=== PATIENT | female | born 1985 | race African-American/Black ===

== ENCOUNTER 2018-05-05 11:20 | Emergency (ER) | payer OTHER, SELFPAY ==
[2018-05-05 11:21] VITALS: BP 119/73; PULSE 92; RESP 18; TEMP 36.6; O2SAT 99; BMI 23.5
--- NOTE | 2018-05-05 11:30 | ED.VISSUMM ---
- ER Visit Summary Date of Service: 05/05/18 Chief Complaint: Itching History of Present Illness: The patient is a 32 F who has been itching for 4 days. She ate a granola bar with peanuts and now she is itching. She has never had any issues with peanuts in the past. No history of anaphylaxis. Denies shortness of breath, tongue swelling, rashes. She took nothing for this at home. Physical Examination: Vital signs reviewed. HEENT exam unremarkable. Heart is regular rate and rhythm without murmurs. Lungs are clear to auscultation. Abdomen is soft and nontender. Extremities reveal no edema. Skin exam normal. Neurologic exam normal. Test Results: [] Emergency Department Course and Treatment: Patient has no signs of any allergy reaction. I will give her Vistaril to help with itching. She can supplement with Benadryl and she will follow-up with her PCP Treatment Plan: [] Disposition: discharge Impression: Pruritus This note was generated with [employer] dictation software. It may contain incorrect words, spelling, and punctuation that were not noted in review of the chart prior to signing ED Disposition - Plan for ED Patient: Chief Complaint: Allergic Reaction Referrals: Care Physician,No Primary [Primary Care Provider] -
--- NOTE | 2018-05-05 11:32 | ED.DEP ---
ED Disposition - Plan for ED Patient: Disposition: Home or Assisted Living Chief Complaint: Allergic Reaction Instructions: ED Allergic Reaction Local Other Prescriptions: hydrOXYzine pamoate capsule [Vistaril] 25 mg PO TID PRN PRN #30 cap PRN Reason: Itching Referrals: Care Physician,No Primary [Primary Care Provider] -
== END 2018-05-05 11:46 | disposition home or self-care (01) ==
LOC: ED 11:42
PROVIDERS: Emergency Provider Emergency Medicine
DX: L29.9 Pruritus, unspecified (principal)
CPT/HCPCS: 99282

== ENCOUNTER 2018-09-26 21:10 | Emergency (ER) | payer OTHER, SELFPAY ==
[2018-09-26 21:11] VITALS: BP 122/73; PULSE 81; RESP 16; TEMP 36.8; O2SAT 98; BMI 22.0
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
[2018-09-26 22:23] VITALS: BP 120/70; PULSE 75; RESP 16; O2SAT 98
== END 2018-09-26 22:25 | disposition home or self-care (01) ==
PROVIDERS: Emergency Provider Emergency Medicine
DX: S00.03XA Contusion of scalp, initial encounter (principal); R40.2410 Glasgow coma scale score 13-15, unspecified time; V89.2XXA Person injured in unspecified motor-vehicle accident, traffic, initial encounter; Y93.9 Activity, unspecified; Y92.9 Unspecified place or not applicable
CPT/HCPCS: 99282

== ENCOUNTER 2018-10-23 20:52 | Emergency (ER) | payer OTHER, SELFPAY ==
[2018-10-23 20:53] VITALS: BP 123/71; PULSE 90; RESP 16; TEMP 36.2; O2SAT 100; BMI 26.4
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
[2018-10-23 21:37] VITALS: PULSE 68; RESP 18; O2SAT 96
== END 2018-10-23 21:37 | disposition home or self-care (01) ==
LOC: ED 21:21
PROVIDERS: Emergency Provider Emergency Medicine
DX: F07.81 Postconcussional syndrome (principal); V89.2XXA Person injured in unspecified motor-vehicle accident, traffic, initial encounter; Y93.9 Activity, unspecified; Y92.9 Unspecified place or not applicable
CPT/HCPCS: 99282

== ENCOUNTER 2018-12-15 10:56 | Emergency (ER) | payer OTHER, SELFPAY ==
[2018-12-15 10:56] VITALS: BP 118/66; PULSE 88; RESP 18; TEMP 36.8; O2SAT 100; BMI 24.9
--- NOTE | 2018-12-15 10:59 | ED.RN ---
PT NEVER FILLED MECLAZINE SCRIPT D/T INSURANCE NOT COVERING
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
--- NOTE | 2018-12-15 11:19 | ED.DEP ---
ED Disposition - Plan for ED Patient: Disposition: Home or Assisted Living Chief Complaint: Dizziness Instructions: ED Concussion Prescriptions: Ondansetron [Zofran Odt] 4 mg PO Q8H PRN PRN #20 tab PRN Reason: Nausea Referrals: Care Physician,No Primary [Primary Care Provider] -
[2018-12-15] MEDS: Ondansetron ODT 4 MG Tablet 8 MG PO (12:13)
== END 2018-12-15 12:31 | disposition home or self-care (01) ==
LOC: ED 12:14
PROVIDERS: Emergency Provider Emergency Medicine; Family Provider Nurse Practitioner Primary Care; PCP Nurse Practitioner Primary Care
DX: F07.81 Postconcussional syndrome (principal)
CPT/HCPCS: 99283

== ENCOUNTER 2020-02-04 22:59 | Emergency (ER) | payer OTHER, SELFPAY ==
[2020-02-04 22:59] VITALS: BP 138/74; PULSE 117; RESP 18; TEMP 38.2; O2SAT 100
[2020-02-04 23:01] VITALS: BP 138/74; PULSE 117; RESP 18; TEMP 38.2; O2SAT 100; BMI 23.0
[2020-02-04 23:08] VITALS: BP 138/74; PULSE 117; RESP 18; TEMP 38.2; O2SAT 100
[2020-02-04 23:17] VITALS: BP 138/74; PULSE 117; RESP 18; TEMP 38.2; O2SAT 100
--- NOTE | 2020-02-04 23:21 | ED.DCSUM_ITS ---
History of Present Illness Chief Complaint: Sore Throat Informant: Patient Narrative: Presents with sore throat since yesterday. She has a low-grade temperature per patient. No home treatment. Current severity is mild. Denies any URI symptoms. No lymph node soreness. No headache. No myalgias or weakness. Past Medical History - Allergies and Home Meds Allergies/Adverse Reactions: Allergies No Known Allergies Allergy (Verified 12/15/18 10:59) Primary Care Physician: Waleska Fontenot NP-C [NON-STAFF] - Prior records reviewed: Yes Past Medical History: - - Reviewed Surgical History: - - Reviewed Smoking Status: Never smoker Alcohol: None Drugs: None Review of Systems General: Reports: Fever. Denies: Chills, Sweats Eyes: Denies: Visual changes - bilaterally, Diplopia ENT: Reports: Sore throat. Denies: Rhinorrhea Cardiovascular: Denies: Chest pain, Palpitations Respiratory: Denies: Dyspnea, Cough, Dyspnea on exertion Gastrointestinal: Denies: Abdominal pain, Nausea, Vomiting, Diarrhea, Melena, Hematochezia Genitourinary: Denies: Dysuria, Hematuria, Frequency Musculoskeletal: Denies: Back pain, Extremity Pain Skin: Denies: Rash, Wounds Neurological: Denies: Headache, Weakness, Numbness Physical Exam Vital Signs/Narrative: Vital Signs Temp Pulse Resp BP Pulse Ox 02/04/20 23:17 100.7 F H 117 H 18 138/74 H 100 02/04/20 23:08 100.7 F H 117 H 18 138/74 H 100 02/04/20 23:01 100.7 F H 117 H 18 138/74 H 100 02/04/20 22:59 100.7 F H 117 H 18 138/74 H 100 General: Well nourished, Well developed, No Acute Distress Head: Normocephalic, Atraumatic Eyes: Perrl, EOMI ENT: Moist mucous membranes, No rhinorrhea, - - 2+ tonsils with exudate mild erythema bilateral and rest of oral exam normal Neck: Supple, Nontender Cardiovascular: Regular rate, Regular rhythm, No murmurs Respiratory: No distress, CTA bilaterally, Chest nontender Abdomen: Soft, Nontender, Nondistended, Normal bowel sounds Back: Nontender, Normal Inspection Extremities: Nontender, No edema Skin: Normal color, No rash Neurological: Alert, Oriented x3, Cranial nerves II-XII grossly intact, Normal Strength, Normal Sensation Psychological: Normal affect, Normal Mood Diagnostic/Tx/Re-eval - Medical Decision Making Given Tylenol. Rapid strep obtained. Rapid strep was negative. Culture sent. At this time I feel the patient likely has a viral related sore throat with low- grade temperature. I have a low suspicion for coronavirus. She has no cough or URI symptoms headache. Nonetheless she will monitor her symptoms at home. Given a handout sheet to read about coronavirus. Is likely just a sore throat from a virus however. She will use symptomatic management follow-up as an outpatient and return if she worsens ED Disposition - Plan for ED Patient: Disposition: Home or Assisted Living Diagnosis: Tonsillitis Instructions: PHARYNGITIS, Viral Referrals: PodlogarWaleska NP-C [NON-STAFF] -
[2020-02-04] MEDS: Acetaminophen 500 MG Tablet 1000 MG PO (23:35)
[2020-02-05 01:00] VITALS: PULSE 89; RESP 16; TEMP 37.2; O2SAT 100
== END 2020-02-05 01:02 | disposition home or self-care (01) ==
PROVIDERS: Emergency Provider Emergency Medicine
DX: J03.90 Acute tonsillitis, unspecified (principal)
CPT/HCPCS: 87880; 99283

== ENCOUNTER 2021-05-19 12:52 | Emergency (ER) | payer SELFPAY ==
[2021-05-19 12:54] VITALS: BP 104/71; PULSE 96; RESP 16; TEMP 36.2; O2SAT 99; BMI 19.5
--- NOTE | 2021-05-19 13:19 | EX.ED.DYSGE1 ---
HPI History of Present Illness Chief Complaint: Headache Detail of Chief Complaint: Headache and fatigue and not feeling well Informant: patient Narrative Narrative: Patient presents to the emergency department stating that she has had some head pressure off and on for the last week. Patient states that her sister was recently admitted to a psychiatric hospital and she has been under a lot of stress lately. Patient states she has history of postconcussive type syndrome from a concussion in 2018 and intermittently will have problems with head pressure and nausea and fatigue. Patient denies recent illness. She denies fever. She denies recent falls or head injuries. She complains of head pressure and some mild nausea. She rates her headache currently 3-5 out of 10. Patient also has history of anxiety. She does not think she is because she has a history of amenorrhea. Prior similar symptoms: Yes [facility] Medical History (Updated 05/19/21 @ 16:[address] Guadalupe Oneal, DO) Post concussion syndrome Home Medications NK 05/19/21 [History Last Taken Unknown] lorazepam [Ativan] 1 mg PO TID PRN #10 tab 05/19/21 [Rx Last Taken Unknown] Allergy/AdvReac Type Severity Reaction Status Date / Time peanut Allergy Hives Verified 05/19/21 12:53 Surgical History (Updated 05/19/21 @ 13:40 by Jhonathan Gerber) History of appendectomy Social History Smoking Status: Never smoker ROS ROS ED Constitutional Constitutional ED: Reports systems reviewed and no addt'l complaints, except as documented and other Details: Fatigue ; Denies body ache(s), change in weight or chills Eyes Eyes: Denies acute decrease in peripheral vision, change in vision, double vision or loss of vision ENT ENT ED: Reports none; Denies ear pain, lip swelling, loss taste/smell, neck pain, otalgia or sore throat Cardiovascular Cardiovascular: Reports none; Denies abdominal pain, chest pain with activity, leg edema, lightheadedness, palpitations, rapid heart rate or syncope Respiratory/Chest Respiratory/Chest: Reports none; Denies change in mental status, dry cough, dyspnea, hemoptysis, shortness of breath at rest or shortness of breath with exertion Gastrointestinal Gastrointestinal: Reports none and nausea; Denies abdominal pain, change in stool character, diarrhea, hematemesis, hematochezia, melena, rectal bleeding or vomiting Genitourinary Genitourinary ED: Reports none; Denies abdominal discomfort, anuria, dysuria, genital pain or polyuria Musculoskeletal Musculoskeletal: Reports none; Denies arthralgias, back pain, difficulty walking, extremity pain, muscle weakness or myalgias Integumentary Reports none; Denies abscess or rash Neurologic Neurologic: Reports none and headache(s); Denies abnormal gait, confusion, focal weakness, frequent falls, loss of vision, numbness, paresthesias, radicular pain, vertigo or weakness Psychiatric Psychiatric: Reports systems reviewed and no addt'l complaints, except as documented and none; Denies behavioral changes, confusion, difficulty concentrating, hallucinations, suicidal ideation, tactile hallucinations or visual hallucinations Endocrine Endocrinology: Denies none, cold intolerance, excessive sweating, fatigue or heat intolerance Hematologic/Lymphatic Hematologic/Lymphatic: Reports none; Denies anemia, easy bleeding or easy bruising Allergic/Immunologic Allergic/Immunologic ED: Denies as per HPI, none, lip swelling, mouth swelling, throat swelling, tongue swelling or hives EXAM Physical Exam Const Vital Signs: 05/19/21 12:54 Temperature 97.2 F L Temperature Source Temporal Pulse Rate 96 Respiratory Rate 16 Blood Pressure 104/71 Blood Pressure Mean 82 Pulse Ox 99 Oxygen Delivery Method Room Air Positive well nourished and well developed General Appearance ED: well developed and NAD HEENT Reports TM's clear and moist mucous membranes normocephalic and atraumatic; Negative for trauma or tenderness Tympanic Membrane ED: Yes TM's clear Eyes PERRL and EOMs intact bilaterally General Eye ED: Negative for pale conjunctiva or scleral icterus Neck no lymphadenopathy, supple and no JVD General: Negative for tenderness Chest Wall inspection of chest normal and palpation of chest normal Chest: Negative for tenderness Resp normal respiratory effort and clear to auscultation bilaterally Effort and Inspection: Negative for respiratory distress or pain with movement Auscultation: Negative for rhonchi, wheezes or diminished lung sounds Cardio regular rate, regular rhythm, S1 normal heart sound, S2 normal heart sound and no murmurs Peripheral Pulses: pulses 2+ throughout GI normal to inspection, nondistended, normoactive bowel sounds, soft to palpation, non-tender, non-distended and no masses Back/Spine no CVA tenderness and no thoracic nor lumbar tenderness Extremity normal to inspection General Extremety ED: Negative for edema General Extremity: Negative for edema Neuro oriented x3, CN's II-XII intact bilaterally, no sensory deficits noted and gait normal Sensorium / Orientation: awake, alert, oriented to person, oriented to place and oriented to time Motor Exam: strength 5/5 throughout and strength abnormal Psych mental status grossly normal Skin no rashes or lesions noted and no wounds MDM MDM MDM Narrative Medical decision making narrative: I suspect patient's symptoms likely stress related and anxiety related. She denies anything for her headache here in the department. She does have history of anxiety but tries to manage with behavioral therapy and has not taken medication for it. She would not be opposed to some Ativan as needed for stress and anxiety in the short-term given her recent increase stress related to her sister. Lab Data Attestation: I reviewed the patient's lab results. Labs: Laboratory Results - last 24 hr 05/19/21 05/19/21 05/19/21 13:41 13:41 13:41 WBC 3.3 L RBC 3.62 L Hgb 11.7 L Hct 36.2 L MCV 100.0 H MCH 32.3 H MCHC 32.3 RDW Std Deviation 46.0 H RDW Coeff of Doug 12.3 Plt Count 255 MPV 10.1 Immature Gran % (Auto) 0.000 Neut % (Auto) 49.3 Lymph % (Auto) 38.8 Stewart % (Auto) 9.5 Eos % (Auto) 1.8 Baso % (Auto) 0.6 Absolute Neuts (auto) 1.6 L Absolute Lymphs (auto) 1.26 Nucleated RBC % 0 Sodium 141 Potassium 4.0 Chloride 109 H Carbon Dioxide 25.0 Anion Gap 7 BUN 4 L Creatinine 0.91 Estim Creat Clear Calc 80.03 Est GFR (MDRD) Af Amer 91 Est GFR (MDRD) Non-Af 75 BUN/Creatinine Ratio 4.4 L Glucose 103 Calcium 8.7 Serum , Qual NEGATIVE Urine Color Urine Clarity Urine pH Ur Specific Glidden Urine Protein Urine Glucose (UA) Urine Ketones Urine Occult Blood Urine Nitrite Urine Bilirubin Urine Urobilinogen Ur Leukocyte Esterase 05/19/21 15:20 WBC RBC Hgb Hct MCV MCH MCHC RDW Std Deviation RDW Coeff of Doug Plt Count MPV Immature Gran % (Auto) Neut % (Auto) Lymph % (Auto) Stewart % (Auto) Eos % (Auto) Baso % (Auto) Absolute Neuts (auto) Absolute Lymphs (auto) Nucleated RBC % Sodium Potassium Chloride Carbon Dioxide Anion Gap BUN Creatinine Estim Creat Clear Calc Est GFR (MDRD) Af Amer Est GFR (MDRD) Non-Af BUN/Creatinine Ratio Glucose Calcium Serum , Qual Urine Color Yellow Urine Clarity Clear Urine pH 6.5 Ur Specific Glidden 1.005 Urine Protein Negative Urine Glucose (UA) Normal Urine Ketones Negative Urine Occult Blood Negative Urine Nitrite Negative Urine Bilirubin Negative Urine Urobilinogen Normal Ur Leukocyte Esterase Negative Discharge Plan Triage Chief Complaint: Headache ED Provider: Guadalupe Oneal Dx/Rx/DC Orders Clinical Impression: Anxiety, Fatigue, Headache Prescriptions: New lorazepam [Ativan] 1 mg tablet 1 mg PO TID PRN (Reason: anxiety) Qty: 10 RF: 0 No Action NK RF: 0 Primary Care Provider: Care Physician,No Primary Referrals: Betty Norman MD [STAFF PHYSICIAN] - 3-5 Days Care Physician,No Primary [Primary Care Provider] - Disposition Disposition: Home, Self Care
[2021-05-19] MEDS: 0.9% Normal Saline 1,000 ML 1000 ML IV (13:41)
[2021-05-19 13:51] LABS: Absolute Lymphocyte Count 1.26 X10^3/uL (0.83-4.51); Absolute Neutrophil Count 1.6 X10^3/uL (2.0-7.7); Basophil# 0.02 X10^3/uL; Basophil% 0.6 % (0-1); Eosinophil# 0.06 X10^3/uL; Eosinophils% 1.8 % (0-5); Hematocrit 36.2 % (37-47); Hemoglobin 11.7 g/dL (12.0-15.0); Lymphocyte # 1.26 X10^3/ul (0.83-4.51); Lymphocyte % 38.8 % (19-41); Mean Corp Hgb Conc 32.3 g/dL (32-36); Mean Corpuscular Hgb 32.3 pg (27.0-32.0); Mean Platelet Vol. 10.1 fl (6.2-12.0); Monocyte# 0.31 X10^3/uL; Monocyte% 9.5 % (0-10); NRBC Flagged by Analyzer 0 % (0-5); Neutrophil % 49.3 % (47-70); Platelet Count 255 K/mm3 (150-450); RBC Distribution Width CV 12.3 % (11.6-14.6); Red Blood Count 3.62 M/mm3 (4.2-5.4); White Blood Count 3.3 K/mm3 (4.4-11.0)
[2021-05-19 14:02] LABS: Anion Gap 7 (5-15); BUN 4 mg/dL (7-18); BUN/Creat Ratio 4.4 RATIO (10-20); Calcium,Total 8.7 mg/dL (8.5-10.1); Chloride 109 mmol/L (98-107); Creatinine, Serum 0.91 mg/dL (0.55-1.02); EST Glomerular Filtration Rate 75 mL/min (>60); Est Glom Filt Rate - Afr Amer 91 mL/min (>60); Estimated Creatinine Clearance 80.03 ml/min; Glucose 103 mg/dL (74-106); Sodium Level 141 mmol/L (136-145)
[2021-05-19 14:12] LABS: Internal QC Validated? YES +Cl - CLEAR BKGD; Pregnancy, Serum, hCG Quali. NEGATIVE Negative
[2021-05-19 15:26] LABS: Bacteria 0 SEEN /hpf (None Seen); Mucous, Urine 0 SEEN /hpf (<or=2+); Red Blood Cells-Urine 0 SEEN /hpf (0-5); Squamous Epithelial Cells - UA 0 SEEN /hpf (5-10); White Blood Cells 0 SEEN /hpf (0-5)
[2021-05-19 15:43] LABS: Color, Urine Yellow (Yellow); Glucose, Dipstick Normal (Normal); Ketone-Dipstick Negative (Negative); Leukocyte Esterase-Dipstick Negative /ul (Negative); Nitrite-Dipstick Negative (Negative); Occult Blood-Urine Negative /ul (Negative); Protein-Dipstick Negative (Negative); Specific Gravity, Urine 1.005 (1.002-1.030); Urine Bilirubin Dipstick Negative (Negative); Urine Clarity Clear (Clear); Urine Urobilinogen Normal (Normal); Urine pH 6.5 (5.0 - 8.0)
[2021-05-19 16:15] VITALS: BP 101/80; PULSE 76; RESP 16; O2SAT 98
== END 2021-05-19 16:16 | disposition home or self-care (01) ==
PROVIDERS: Emergency Provider Emergency Medicine
DX: R51.9 Headache, unspecified (principal); F41.9 Anxiety disorder, unspecified; R53.83 Other fatigue; F07.81 Postconcussional syndrome
CPT/HCPCS: 80048; 81001; 84703; 85025; 96360; 96361; 99283; J7030; A4216

== ENCOUNTER 2022-12-17 04:51 | Emergency (ER) | payer MEDICAID, SELFPAY ==
[2022-12-17 04:53] VITALS: BP 115/83; PULSE 99; RESP 18; TEMP 35.7; O2SAT 100; BMI 24.3
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
== END 2022-12-17 05:31 | disposition home or self-care (01) ==
LOC: ED 05:11
PROVIDERS: Emergency Provider Emergency Medicine; PCP Internal Medicine; Visit Provider Emergency Medicine
DX: R53.1 Weakness (principal); R11.0 Nausea; Z91.81 History of falling
CPT/HCPCS: 99282

== ENCOUNTER 2024-01-30 08:00 | Outpatient (RCR) | payer MEDICAID, SELFPAY ==
--- NOTE | 2024-01-30 09:05 | BH.SGPN.GN ---
Behaviors/Verbalizations/Mental Status: [] Eye contact good. Motor activity appropriate. Speech within normal limits. Affect congruent, mood anxious and content. Thoughts linear, logical, no signs of hallucinations or delusions. Reviewed client?s symptom tracker, denies SI, plan, or intent as of 01/30/2024. Client Response/Progress/Benefit: [] Client first week in tx. She was receptive of session, attentive and willing to process with group. Identified mental health ?wins? as challenging herself to ask for financial assistance from her sister to purchase self-care items. Noted this was outside of her comfort zone but she felt proud and more confident afterwards. Additional win noted as following through with beginning the IOP tx program. Reports current stressor as ongoing difficulties in managing her anxiety and racing thoughts. Shared trying to find the benefits of anxiety and focus on those. Client appeared to benefit from group support and encouragement. Recommended continued IOP tx to continue to reduce anxiety, promote consistent skill application, and prevent decompensation. Narrative Note: []
--- NOTE | 2024-01-30 10:10 | BH.SGPN.GN ---
Behaviors/Verbalizations/Mental Status: [] Eye contact is good. Motor activity is appropriate. Appearance is neat. Speech is Appropriate. Mood is anxious. Affect is congruent. Thoughts are linear and logical. No evidence of psychosis. Client Response/Progress/Benefit: [] Pt was an active participant in group discussions. Attentive during psychoeducation on the 4 communication styles (Passive, Passive-Aggressive, Aggressive, and Assertive) and the obstacles to effective communication. Contributed during interactive discussion on the benefits of communicating effectively which included; having one's needs met, helping others get their needs met, building connection with others, decreases stress and uncertainty, improved relationships, increased trust, and increased understanding of others. Worked well in small group in which pt and peers identified the benefits and disadvantages to the different communication styles. Benefited from increased understanding of communication styles and how these can impact effective communication. Will continue in IOP to decrease anxious avoidance, increase healthy coping, and prevent decompensation.
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
--- NOTE | 2024-01-31 09:05 | BH.SGPN.GN ---
Behaviors/Verbalizations/Mental Status: [Patient was alert and oriented, appropriately dressed and groomed. Eye contact was good, motor activity normal, speech within normal limits. Affect congruent, mood anxious. Thoughts linear, logical, no signs of hallucinations or delusions. Reviewed Patients symptom tracker and the patient reports depressed mood, anxiety/panic attacks, agitation/irritability/anger, self-harm urges, and thoughts/risk of suicide within normal limits.] Client Response/Progress/Benefit: [Patient was engaged and open to the discussion. Patient reported her mood to be ?Anxious?.?Patients first win is that she had a panic attack yesterday but was able to cope with it well. She stated she spoke out loud to herself about the panic attack and reminded herself that she was safe and that it would pass. She stated she eventually left the room and she felt it slowly go away. The group talked about different grounding techniques that help when you feel high adrenaline whether that be from panic or anger. Patients second win is that despite the panic attack she was able to come to group today when in the past her panic attacks normally hospitalized her. Patients stressor is finances. Patient was interactive and respectful with other group members about their mental wins and stressors. Patient benefited from the discussion by listening to feedback and giving input on her peer?s stressors and mental health wins. Patient will continue with IOP treatment to help develop healthy skills, promote mood stability, and improve distress tolerance. ?] Narrative Note: []
--- NOTE | 2024-01-31 11:10 | BH.SGPN.GN ---
Behaviors/Verbalizations/Mental Status: [] Client alert and oriented, casually dressed and groomed. Eye contact good. Motor activity appropriate. Speech within normal limits. Affect congruent, mood euthymic. Thoughts linear, logical, no signs of hallucinations or delusions. Client Response/Progress/Benefit: [] Client was an active participant throughout AEB contributing to discussion, providing personal examples, and taking notes. Client processed emotions felt in the activity and how they coped in the moment. Client provided input during discussion on the types of support our supports can provide. Client able to identify current support system and barriers that get in the way of using supports by drawing out their own support net. Client reported after identifying what type of supports they receive; they gained awareness that they could benefit from more emotional supports. Client identified steps to achieve this by joining an online community and reaching out to someone. Client shared increasing emotional supports will help them feel safer. Client seemed to benefit from identifying the type of support client needs to work on improving. Client recommended to continue IOP tx to prevent decompensation and increase emotional regulation skills. Narrative Note: []
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
[2024-01-31 11:32] VITALS: BP 112/74; PULSE 74
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
--- NOTE | 2024-01-31 12:41 | BH.DR.ITP ---
Initial Treatment Plan Patient Information Visit Information: ADMISSION DATE: EXPECTED LOS: 4-6 weeks Problems/Symptoms Problem #1:: Depression Symptom:: Sadness, low energy, decreased concentration, isolation, low motivation, irritable Problem #2:: Anxiety Symptom:: Worry, rumination, panic attacks, flashbacks, nightmares, hypervigilance
--- NOTE | 2024-02-02 09:03 | BH.SGPN.GN ---
Behaviors/Verbalizations/Mental Status: Patient was alert and oriented, appropriately dressed and groomed. Eye contact was good, motor activity normal, speech within normal limits. Affect congruent, mood euthymic. Thoughts linear, logical, no signs of hallucinations or delusions. Reviewed Patients symptom tracker and denies suicidal ideation, plan, or intention. Client Response/Progress/Benefit: Patient was engaged and open to the discussion. Pt reported mental health win as started new medication despite having anxious/fearful thoughts about potential side effects of new medication. Pt stated additional win was being able to leave her bedroom and spend time downstairs with family for first time in 2 months. Pt reported she is happy she pushed through anxious thoughts and was able to take her medication because she does think it is helpful. 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 Patient benefited from the discussion by listening to feedback and giving input on her peer?s stressors and mental health wins. Patient will continue with IOP treatment to continue healthy coping skills, challenge negative/distorted thoughts, and prevent decompensation.
--- NOTE | 2024-02-02 10:05 | BH.SGPN.GN ---
Behaviors/Verbalizations/Mental Status: [] Eye contact is good. Motor activity is appropriate. Appearance is casual. Speech is Appropriate. Mood is anxious. Affect is congruent. Thoughts are linear and logical. No evidence of psychosis. Client Response/Progress/Benefit: [] Pt was an active participant in activity and taking notes during group discussion. Attentive during psychoeducation and interactive discussion on coping skills, why people use unhealthy coping skills, how to replace unhealthy coping skills, and internal vs external coping skills. Group came up with list of negative coping skills including not asking for help, avoidance, isolating, sleeping, shopping, substance use, and several others. Group discussed the effects of how negative coping skills can impact mental health in a negative way. Participated during experiential activity and was able to related the activity to group topic regarding the benefits of developing strong internal and external support system. Benefited from increased understanding of unhealthy coping skills and the need for developing healthy internal and external coping skills. Will continue in IOP to prevent decompensation, stabilize anxiety, increase healthy coping, decrease isolation, and improve functioning. Narrative Note: []
--- NOTE | 2024-02-02 11:18 | BH.SGPN.GN ---
Behaviors/Verbalizations/Mental Status: []Pt alert and oriented, casually dressed and groomed. Eye contact good. Motor activity appropriate. Speech within normal limits. Affect congruent, mood anxious and dysthymic. Thoughts linear, logical, no signs of hallucinations or delusions. Client Response/Progress/Benefit: []Pt responded well to session, taking notes and contributing when prompted. Group discussed the different categories of coping skills which included distraction, emotional release, grounding, self-love, and thought challenging.? Pt participated in creating a coping skills ?menu? from the five categories of coping skills. Pt's coping skill menu included: cold shower, stretching, 5 senses tool, gratitude reflection, and look at evidence for/against. Appeared to benefit from increasing repertoire of healthy coping skills. Will continue IOP tx to increase repertoire and use of healthy coping skills, promote mood stability, and prevent decompensation. Narrative Note: []
--- NOTE | 2024-02-02 13:24 | BH.MDN ---
Multi-Disciplinary Note Note 60-min Individual: Time Started:: 12:05 Date: 02/02/24 Purpose of session/treatment goals addressed:: Purpose of session was to solidify treatment goals and build rapport. Eye Contact:: Good Motor Activity:: Appropriate Appearance:: Neat Speech:: Appropriate Mood:: Anxious Affect:: Congruent Thoughts:: Linear, Logical and No evidence of hallucinations/delusions noted Staff Interventions:: psychoeducation on: (fear ladder), CBT techniques, rapport building, strengths perspective, treatment planning, goal setting and taught coping skills Client Response:: Client shared she is seeking treatment because her anxiety has worsened significantly since moving back home late last year. Client stated she wasn't leaving her house and isolated in her bedroom for most of the time. Client stated couldn't get energy to even make food for herself and started having suicidal thoughts which is what prompted her to get treatment. Client shared she is complicated family environment with all of her film a verse that she lives with have mental illness. Client stated her mom has schizophrenia but is currently being treated her brother has OCD and is not being treated in her sister has depression. Client reported growing up she often was the person that took care of everybody else and needed to be the strong one. Client stated she recognize that she can no longer be that person that constantly takes care of others and doesn't take care of herself. Client reported she wants to feel like she can live again. 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 Client said in addition to mental health she did have a serious concussion with post concussion symptoms for two years. Client reported she doesn't have post concussion symptoms anymore but is constantly worried if she is too stressed or puts herself in a situation that will trigger her post concussion symptoms again. Client stated while she's in IOP she'd like to learn healthy coping skills to manage her anxiety and depression, wants to learn how to express herself more effectively, improve boundaries, and feel like herself again. Client stated at baseline she's able to run errands with no problem, be more social, go to synagogue, enjoy conversations without having to rehearse them, and get dressed confidently. Client responded well to psychoeducation about fear ladder. Discuss importance about self-care and client admitted she's been lacking in this area. Client agreed go for the weekend is to take time for self-care and rest. Risks/Concerns:: Denies suicidal ideation, plan, or intention to date. future oriented. Progress Toward Goals/Plan:: Progress noted with client reporting mood improvement since starting IOP this week. Client stated being around supportive environment has been very helpful. client does report significant anxious thoughts, depressed symptoms, and limited support. Client is to continue IOP to increase healthy coping, improve daily functioning, and prevent decompensation. Time Stopped:: 13:00
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
--- NOTE | 2024-02-06 09:00 | BH.SGPN.GN ---
Behaviors/Verbalizations/Mental Status: [] Eye contact is good. Motor activity is appropriate. Appearance is casual. Speech is Appropriate. Mood is anxious. Affect is congruent. Thoughts are linear and logical. No evidence of psychosis. Reviewed daily check in sheet and no reports of suicidal ideations or intent. Client Response/Progress/Benefit: [] Pt participated at times during the group discussion. Attentive. Daily symptom tracker notes 2/5 for anxiety and 1/5 for depression and irritability. Notes mood and functioning are better. Able to identify mental health wins and healthy habits. Stressful morning. Insight that she was having cognitive distortions such as catastrophizing and how this impacted her thoughts, feelings, and behaviors. Through insight was able ti implement skills. Challenged herself to seek support rather than isolate this weekend which was beneficial. Emotion for today is relaxed. Progress noted per pt report. Benefited from group support, encouragement, and feedback. Will continue in IOP to prevent decompensation, decrease anxiety, and improve functioning. Narrative Note: []
--- NOTE | 2024-02-06 10:15 | BH.SGPN.GN ---
Behaviors/Verbalizations/Mental Status: []Pt alert and oriented, causally dressed and groomed. Eye contact good Motor activity appropriate. Speech within normal limits. Affect congruent, mood anxious. Thoughts linear, logical, no signs of hallucinations or delusions. Client Response/Progress/Benefit: [] Pt was actively engaged, providing input at times, and taking notes throughout session. Connected with the topic of pitfalls and listened to group discussion on internal and external barriers that prevent from choosing a healthier path to mental wellness. Group worked together to identify examples of personal internal pitfalls and pt identified theirs as what if thinking and negative thinking patterns. Pt benefited from group as pt learned to better identify and normalize potential barriers to improving mental health symptoms. Pt also gained awareness of the difference between external triggers and self-sabotaging behaviors. Pt will continue IOP tx to prevent decompensation, improve daily functioning, and gain healthy coping skills. Narrative Note: []
--- NOTE | 2024-02-06 11:15 | BH.SGPN.GN ---
Behaviors/Verbalizations/Mental Status: []Pt alert and oriented, casually dressed and groomed. Eye contact good. Motor activity appropriate. Speech within normal limits. Affect congruent, mood anxious and dysthymic. Thoughts linear, logical, no signs of hallucinations or delusions. Client Response/Progress/Benefit: [] Pt receptive of session, engaged throughout AEB actively contributing and listening to discussion, as well as taking notes. Pt participated in the experiential activity and processed with group how their emotions, perspective, and reactions positively and negatively impacted the outcome. Pt identified pitfalls they struggle with and shared wanting to work on pitfall of what if thoughts by reminding herself thoughts are thoughts, not facts. Benefited from identifying personal pitfalls and strategies to overcome these pitfalls. Will continue IOP tx to prevent decompensation, improve daily functioning, and increase anxiety management skills. ? Narrative Note: []
--- NOTE | 2024-02-09 09:00 | BH.SGPN.GN ---
Behaviors/Verbalizations/Mental Status: [Patient was alert and oriented, appropriately dressed and groomed. Eye contact was good, motor activity normal, speech within normal limits. Affect congruent, mood content. Thoughts linear, logical, no signs of hallucinations or delusions. Reviewed Patients symptom tracker and the patient reports depressed mood, anxiety/panic attacks, agitation/irritability/anger, self-harm urges, and thoughts/risk of suicide within normal limits.] Client Response/Progress/Benefit: [Patient was engaged and open to the discussion. Patient reported her mood to be ?neutral?. Patients first win is that this morning she woke up in a ?funk? but was able to thought challenge and bring herself out of it. Patients reported her second win and stressor go together. Patient had given her number to a new person at her [facility] to try and connect. However, the patient stated that this person said some things to her yesterday that she did not like and set a boundary with them. Patient said that she wanted to respond to the message back but decided she did not need to further explain more to that person. Patient was interactive and respectful with other group members about their mental wins and stressors. Patient benefited from the discussion by listening to feedback and giving input on her peer?s stressors and mental health wins. Patient will continue with IOP treatment to help develop healthy skills, promote mood stability, and improve distress tolerance. ] Narrative Note: []
--- NOTE | 2024-02-09 10:05 | BH.SGPN.GN ---
Behaviors/Verbalizations/Mental Status: [] Eye contact is good. Motor activity is appropriate. Appearance is casual. Speech is Appropriate. Mood is anxious. Affect is congruent. Thoughts are linear and logical. No evidence of psychosis. Client Response/Progress/Benefit: [] Pt receptive of session, actively engaged throughout AEB taking notes, providing input, and contributing in small group discussion. Appeared to connect with group topic of automatic thoughts and cognitive distortions and the impact of thought patterns on mental health, coping behaviors, and relationships. This particular group is very heavy on psychoeducation however pt appeared to connect with distortions and how they can impact functioning. Pt appeared to benefit from gaining insight on distorted thinking patterns and how this impacts overall mental health. Will continue IOP to prevent decompensation, stabilize mood, improive functioning, and increase healthy coping skills. Narrative Note: []
--- NOTE | 2024-02-09 11:10 | BH.SGPN.GN ---
Behaviors/Verbalizations/Mental Status: []Eye contact is good. Motor activity is appropriate. Appearance is casual. Speech is WNL. Mood is euthymic. Affect is congruent. Thoughts are linear and logical. No evidence of psychosis. Client Response/Progress/Benefit: []Pt did well to remain an engaged participant AEB providing input during small group discussion and engaging in activity. Activity involved working with peers to answer questions related to psychoeducation on cognitive distortions and practicing reframing distorted thoughts. Pt collaborated with the group to determine the answers. Able to identify the impact distortions has on pt?s mental health. Connected with shoulds distortion as most harmful to their mental health. Benefited from rehearsing ways to challenge/reframe cognitive distortions and by gaining increased insight into examples/definitions of 10 most common cognitive distortions. Will continue IOP to decrease anxious avoidance, increase healthy coping, and prevent decompensation.
--- NOTE | 2024-02-09 14:25 | BH.MDN ---
Multi-Disciplinary Note Note 60-min Individual: Time Started:: 12:05 Date: 02/09/24 Purpose of session/treatment goals addressed:: Purpose of session was to address goals 1 and 2 from MTP. Eye Contact:: Good Motor Activity:: Appropriate Appearance:: Neat Speech:: Appropriate Mood:: Anxious Affect:: Congruent Thoughts:: Linear, Logical and No evidence of hallucinations/delusions noted Staff Interventions:: thought challenging, psychoeducation on: (impact avoidance of anxious thoughts ), CBT techniques, mindfulness skills, rapport building, strengths perspective, goal setting and taught coping skills Client Response:: Client reported she is feeling little stressed about a situation that happened yesterday. Client explained situation about the other person texting her judging statements which frustrated client in the moment. client stated she felt like she did a good job in the moment by choosing to not respond. Client stated she is having a hard time moving away from this situation and keeps ruminating about what the person said. Therapist reviewed grounding and breathing tools with client, encouraging her to focus on what is within her control and bring herself back to the here and now. Client stated she was in a funk this morning, but stated group was helpful to challenge her perspective. Client says she did follow through with goal from last session of allowing herself to recharge over the weekend. Client stated she did feel anxious but used grounding tools and breathing tools to help with staying in the moment and challenging thoughts. Client stated she did think about her morning and evening routine recognizing already waking up feeling anxious because she in a way predicts it the night before hasn't been helpful. Client stated stretching before bed and morning stretching seems to be helping. Client shared anxiety triggers are having to order or try new foods. Client states she doesn't go to grocery stores and orders all her food online to be delivered. However, she does research any new food she orders and looks up the ingredients prior to ordering it. Client stated she is unsure where this came from but she does have a fear of eating things that she's never had before. Client recognizes this does take significant amount of time and stresses her out when it comes to having to order her food for the two weeks. Client stated additional anxiety trigger is verbalizing her own thoughts and needs especially in home because she often focuses on placating others versus expressing how she is feeling. Client stated her anxiety does also keep her from socializing with others because she overthinks it and finds it easier to avoid and not be around people. Client open to goals of ordering at least one item without looking at the ingredients and to set up a hang out with one of her friends in the next week. Risks/Concerns:: Denies suicidal ideation, plan, or intention to date. future oriented. Progress Toward Goals/Plan:: Progress noted with client reporting ability to manage emotions in the moment by breathing and thinking before responding. Client followed through with goal from last session and has been decreasing how much she isolates in her room at home. Client shared how her anxiety keeps her from trying new foods, spending lots of time researching ingredients, trouble setting boundaries, and keeps her from hanging out with others. Client given homework to order one thing from grocery store without researching ingredients. Client to continue IOP to decrease avoidance behaviors, increase healthy coping, and prevent decompensation. Time Stopped:: 13:00
--- NOTE | 2024-02-13 09:05 | BH.SGPN.GN ---
Behaviors/Verbalizations/Mental Status: [] Eye contact is good. Motor activity is appropriate. Appearance is casual. Speech is Appropriate. Mood is anxious. Affect is congruent. Thoughts are linear and logical. No evidence of psychosis. Reviewed daily check in sheet and no reports of suicidal ideations or intent. Client Response/Progress/Benefit: [] Pt participated at times during the group discussion. Attentive. Daily symptom tracker notes 01/22 for irritability and / for anxiety. Pt states my weekend was not good. She did not elaborate except to say that the past few days were emotionally challenging. She briefly discussed that her anxiety was very high. I was tempted to no come in today. Significant ruminations and anxiety this weekend. Emotion for today is meeh. She connected with several peers during a discussion on internal thoughts and images as well as difficulty explaining to others what she is thinking. Limited progress noted since last IOP session. Beneiofted from group support, encouragement, and feedback. Will continue in IOP to prevent decompensation, stabilize anxiety, and improve functioning. Narrative Note: []
--- NOTE | 2024-02-13 10:10 | BH.SGPN.GN ---
Behaviors/Verbalizations/Mental Status: [] Client alert and oriented, neat appearance. Eye contact good. Motor activity appropriate. Speech within normal limits. Affect congruent, mood euthymic. Thoughts linear, logical, no signs of hallucinations or delusions. Reviewed client?s symptom tracker, no risk for suicidal ideation, plan, or intent. Client Response/Progress/Benefit: [] Client receptive to session AEB providing input throughout, listening attentively to others, and taking notes. Attentive throughout psychoeducation on the cognitive triangle and maintenance cycles. Engaged in group discussion reviewing the impact of daily activities and behaviors in either reinforcing unhealthy maintenance cycles and depression or assisting in reducing symptoms (``down?? vs ``up?? activities). Client identified common ``down?? activities they engage in as: Taking on too much, oversleeping, avoidance, isolation, and bottling up emotions. Common ``Up?? activities client identified included: Doing make-up tutorial's, listening to podcast, engaging with friends, affirmations, music, and exercise. Appeared to benefit from increased awareness of current behaviors and impact these have on mental health. Recommended to continue IOP to continue use of healthy coping skills, continue working on setting boundaries, and prevent decompensation. Narrative Note: []
--- NOTE | 2024-02-13 11:15 | BH.SGPN.GN ---
Behaviors/Verbalizations/Mental Status: []Eye contact is good. Motor activity is appropriate. Appearance is neat. Speech is Appropriate. Mood is euthymic. Affect is congruent. Thoughts are linear and logical. No evidence of psychosis. Client Response/Progress/Benefit: [] Pt responded well to session, attentive and engaged in group discussions and activity. Group discussed values and the benefits that knowing one's values can have on one's mental health. Pt explored own values and identified personal top values. Pt stated a personally important value is socializing and friendships. Pt set a goal to improve engagement in this value. Goal identified as attending the women?s group at [employer] next week and scheduling a lunch date with her best friend. Pt appeared to benefit from exploring values and creating a weekly goal. Pt also reported benefitting from the activity and the group encouragement today. Will continue in IOP to reduce negative thinking, improve mood stability, and increase healthy coping skills. ? Narrative Note: []
--- NOTE | 2024-02-16 09:00 | BH.SGPN.GN ---
Behaviors/Verbalizations/Mental Status: [Patient was alert and oriented, appropriately dressed and groomed. Eye contact was good, motor activity normal, speech within normal limits. Affect congruent, mood content. Thoughts linear, logical, no signs of hallucinations or delusions. Reviewed Patients symptom tracker and the patient reports depressed mood, anxiety/panic attacks, agitation/irritability/anger, self-harm urges, and thoughts/risk of suicide within normal limits.] Client Response/Progress/Benefit: [Patient was engaged and open to the discussion. Patient reported her mood to be ?dazzled and good?. Patients first win is that she was on a radio show talking about her concussion this week and it went well. Patient was very excited about this opportunity. Patients second win and stressor go together. Patient shared her first win with a group chat that had her sisters in it. They did not respond at first and then one of them messaged her privately. Patient stated the messaged started out condescending, so she chose not to read that message because she deserved to feel good about this. Patient was interactive and respectful with other group members about their mental wins and stressors. Patient benefited from the discussion by listening to feedback and giving input on her peer?s stressors and mental health wins. Patient will continue with IOP treatment to help develop healthy skills, promote mood stability, and improve distress tolerance. ] Narrative Note: []
--- NOTE | 2024-02-16 10:10 | BH.SGPN.GN ---
Behaviors/Verbalizations/Mental Status: []Pt alert and oriented, casually dressed and groomed. Eye contact good. Motor activity appropriate. Speech within normal limits. Affect congruent, mood euthymic. Thoughts linear, logical, no signs of hallucinations or delusions. Client Response/Progress/Benefit: []Pt participated in group discussion. Group worked together to identify benefits of healthy relationships which included improves mental health, encouragement, motivation, accountability, validation, connection, someone to share experiences with, and support during challenges. Group identified factors that lead to unhealthy relationships which included trauma, lack of communication, and substance use. Benefited from increased insight and awareness of benefits of healthy relationships and factors that contribute to unhealthy relationships. Will continue in IOP to improve healthy coping skills, challenge distortions, and prevent decompensation.
--- NOTE | 2024-02-16 11:10 | BH.SGPN.GN ---
Behaviors/Verbalizations/Mental Status: [] Client alert and oriented, casually dressed and groomed. Eye contact good. Motor activity appropriate. Speech within normal limits. Affect congruent, mood content, anxious. Thoughts linear, logical, no signs of hallucinations or delusions. Client Response/Progress/Benefit: [] Client responded well to session, engaged and taking notes throughout. Worked with group to connect components of the experiential activity with characteristics of healthy and unhealthy relationships. Attentive during psychoeducation about characteristics of healthy, unhealthy, and abusive relationships. Client stated that within the relationship with her sister she is able to identify several unhealthy attributes. Client reported she would like to to improve with setting healthy boundaries and self-advocacy. Appeared to benefit from identifying an area client wants to work on to build healthier relationships. Client to continue IOP to increase healthy coping skills, reduce anxiety, stabilize mood, and prevent decompensation. Narrative Note: []
--- NOTE | 2024-02-16 14:26 | BH.MDN ---
Multi-Disciplinary Note Note 60-min Individual: Time Started:: 12:02 Date: 02/16/24 Purpose of session/treatment goals addressed:: Purpose of session was to address goals 1 and 2 from MTP. Eye Contact:: Good Motor Activity:: Appropriate Appearance:: Casual Speech:: Appropriate Mood:: Anxious Affect:: Congruent Thoughts:: Linear, Logical and No evidence of hallucinations/delusions noted Staff Interventions:: thought challenging, CBT techniques, mindfulness skills, strengths perspective, goal setting and taught coping skills Client Response:: She followed through with goal from last individual session of ordering one thing from the grocery store that she did not read the ingredients for. Stated she did really ingredients once the item was delivered but still has not eaten the food yet. Client stated the last weekend was rougher for her with increased anxiety. Client stated she's continuing to have a difficult time moving on from the comments one of the yarsanism women had said to her last week. Client stated she also was experiencing a lot of anxiety especially physical symptoms which was frustrating. Client stated she had a lot of restlessness and sense of urgency which is a little different presenting than her normal anxiety. Client reported she did Google symptoms of anxiety and kept focusing on why she's feeling anxious and how can she make it go away. Client connected with therapist psychoeducation about how focusing on how to get rid of anxiety or focusing on why she's anxious can really just increase her experience of anxiety. Therapist reviewed skills like grounding, mindfulness, taking a walk, and naming it to tame it. Client connected with the idea of naming that she's experiencing anxiety but try not to help her hyper focus on figuring out why she's anxious. Recognizes that there will be times in which she's anxious but with no apparent reason. 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 Client stated she's really proud of herself for being able to do those things and thought it went well because she was actually able to tell her story and have others hear it from her own perspective. Client asked for some assistance and how to respond to one of her sisters who has a history of being verbally abusive to client. Therapist and client discussed different ways to set boundaries and Shaji agreed she has the right to focus on herself currently until she is ready doesn't have to talk to her sister about making repairs to the relationship yet. For homework client agreeable to eat the thing that she ordered from the grocery store that was new and we'll schedule a coffee hang out with a friend that she has been avoiding due to her anxiety. Risks/Concerns:: Denies suicidal ideation, plan, or intention to date. Progress Toward Goals/Plan:: Client shared increased anxiety over the weekend, but stated group this week has been helpful in challenging her perspective. Client stated she is trying to focus on what is within her control and use grounding/breathing tools. Client stated she is doing better with verbalizing her thoughts/feelings while at home and setting boundaries. Client used skills that helped her go on a podcast this week which she identified as big win because earlier in the week she wanted to cancel. Client to continue IOP to decrease avoidance of anxious situations, continue use of healthy coping skills, and prevent decompensation. Time Stopped:: 13:00
== END 2024-02-18 23:59 ==
LOC: BHIOP 08:00
PROVIDERS: PCP Internal Medicine; Referring Provider Psychiatry & Neurology Psychiatry; Visit Provider Psychiatry & Neurology Psychiatry
DX: F41.1 Generalized anxiety disorder (principal); F43.10 Post-traumatic stress disorder, unspecified; F33.1 Major depressive disorder, recurrent, moderate
CPT/HCPCS: 90792; H2012; H2020; S9480; T1002; 90837

== ENCOUNTER 2024-02-19 07:15 | Outpatient (RCR) | payer MEDICAID, SELFPAY ==
[2024-02-19 00:30] VITALS: BP 112/74; PULSE 74
--- NOTE | 2024-02-20 09:10 | BH.SGPN.GN ---
Behaviors/Verbalizations/Mental Status: [] Eye contact is good. Motor activity is appropriate. Appearance is casual. Speech is Appropriate. Mood is anxious. Affect is congruent. Thoughts are linear and logical. No evidence of psychosis. Reviewed daily check in sheet and no reports of suicidal ideations or intent. Client Response/Progress/Benefit: [] Pt was an active participant in group discussion. Attentive. Daily symptom tracker notes 3/5 for anxiety and 2/5 for irritability. Able to identify mental health wins and healthy habits. Emotion for today is optimistic. States that holiday went well. I had a rough day yesterday regarding anxiety however was able to utilize skills. Shared stressors regarding interpersonal relationships, people-pleasing, and setting boundaries. Progress noted. Benefited from group support, encouragement, and feedback. Will continue in IOP to prevent decompensation, stabilize mood, and improve functioning. Narrative Note: []
--- NOTE | 2024-02-20 10:15 | BH.SGPN.GN ---
Behaviors/Verbalizations/Mental Status: []Pt alert and oriented, neatly dressed and groomed. Eye contact good. Motor activity appropriate. Speech within normal limits. Affect congruent, mood euthymic. Thoughts linear, logical, no signs of hallucinations or delusions. Client Response/Progress/Benefit: [] Pt was an active participant, AEB taking notes and providing input in group discussions and activities. Attentive during psychoeducation. Pt engaged during interactive discussion in which the group defined self-care and discussed its benefits. Pt shared self-care is ?putting self first and not feeling bad about it.? Group discussed benefits of self-care which included; better self-esteem, reduce stress, and boost mood. Pt participated in small group where they worked to identify common self-care ?myths.? Pt?s group worked on self-care being too time consuming, self-care being only fun things, and self-care being too expensive. Benefited from increased awareness of self-care, its benefits, and the consequences of not utilizing self-care strategies. Will continue IOP tx to promote use of healthy coping skills, increase distress tolerance skills, and improve daily functioning. Narrative Note: []
--- NOTE | 2024-02-20 11:15 | BH.SGPN.GN ---
Behaviors/Verbalizations/Mental Status: []Pt alert and oriented, casually dressed and groomed. Eye contact good. Motor activity appropriate. Speech within normal limits. Affect congruent, mood euthymic. Thoughts linear, logical, no signs of hallucinations or delusions. Client Response/Progress/Benefit: [] Pt engaged participant AEB completing self-assessment worksheet and providing input throughout discussion. Pt completed worksheet identifying current self-care practices and what self-care activities Pt wants to start using. Pt selected social self-care to begin practicing more consistently. Pt plans to do this by initiating a hang out with one of her friends.. Appeared to benefit from completing the self-care evaluation and gaining insights into current self-care practices, as well as identifying areas in which pt would like to improve upon. Pt will continue IOP tx to increase healthy coping skills, challenge negative thoughts, decrease anxious avoidance, and prevent decompensation.
--- NOTE | 2024-02-21 11:49 | PCM.BH.PN ---
Progress Note Progress Note: History of Present Illness/Interim History: The patient is a 38-year-old single -Central African female with a history of anxiety, depression and PTSD who is seen in follow-up at the [facility] behavioral health IOP. I last saw the patient 3 weeks ago and at that time BuSpar was added as that was the only medication she would agree to take for her anxiety and depression. According to the staff the patient has been engaged in the IOP and has had consistent attendance and has made some progress. The patient states that she feels she is learning valuable skills and is actually becoming able to take action despite severe anxiety at times. She feels more motivated and has been able to go to [employer] for [employer] and attend a women's night of that. She also did a radio appearance to discuss herself. She feels that the BuSpar has decreased her anxiety and that this has helped her mood overall. But her mood still occasionally is depressed. She had only 1 panic attack in the past week which is an improvement. She denies passive thoughts of , suicidal ideation, plan for suicide, thoughts of self-harm, homicidal ideation, hallucinations or delusions. Current Psychiatric Medications: [] Cymbalta 20 mg p.o. daily; amitriptyline 25 mg p.o. daily. BuSpar 5 mg p.o. twice daily (x 2 weeks. Patient can take it up to 3 times daily but is has not done this yet and is afraid to do it.) Mental Status Examination: [] The patient is a 38-year-old -[place] female who is casually dressed and groomed with good hygiene and has no psychomotor agitation or retardation. She is ambulatory with a normal gait and cooperative and pleasant during the interview. Eye contact is good and speech is normal rate and rhythm and fluent with no pressure. Mood is anxious. Thought process is organized and goal-directed. Thought content: The patient is hopeful for the future and feels she is making progress. There is no evidence of passive thoughts of , suicidal ideation, homicidal ideation, plan for suicide, hallucinations or delusions. Reality testing is intact. Intelligence is above average. Judgment is intact. Insight is good. Impulsivity is low. Diagnoses: [] 1. Generalized anxiety disorde 2. Major depressive disorder, recurrent, moderate 3. PTSD 4. Panic disorder Plan: [] The patient will continue the IOP in behavioral health at [facility] as the structure, support, education and group therapy is benefiting the patient's symptoms. She felt safe during the interview and if it anytime she does not feel safe she will let us know or go to the emergency room. The patient refuses any further medication additions or increases or changes in dose that she does not like taking medication. She agrees to continue the BuSpar and will try to take it 3 times daily if she feels she needs it. I will see the patient in follow-up in 2 weeks and she will continue to follow-up with her outpatient providers.
--- NOTE | 2024-02-21 14:17 | BH.MTP_ITS ---
Treatment Plan Review Demographics Date of Admission:: 01/30/24 Date of Treatment Plan Review:: 02/21/24 Admitting Diagnoses:: 1. Generalized anxiety disorder F41.1 2. Major depressive disorder, recurrent moderate 3. PTSD 4. Panic disorder Current Diagnoses:: 1. Generalized anxiety disorder F41.1 2. Major depressive disorder, recurrent moderate 3. PTSD 4. Panic disorder Patient Status Patient's Response to Treatment:: Patient has responded well to treatment as evidenced by consistent attendance to IOP, contributing to group discussion frequently, and applying skills learned in group and individual therapy sessions outside of treatment environment. Status of Current Problems and Symptoms: Ongoing problems. Client continues to report having days in which she has severe anxiety and occasional depression. Client continues to avoid certain situations that increase her anxious symptoms. Client has been working on trying to sit with the uncomfortable when it comes anxiety and was able to attend latter-day recently. Client also was able to go to a woman's night at her latter-day and did well on a podcast to talk about her story. Despite client reporting significant days in which she is experiencing anxiety she is also really trying to utilize the skills to decrease avoidance of anxious provoking situations. Client's anxiety still impacts ability to be social in certain situations and struggles with getting groceries without researching ingredients. Per DSM 5 cross-cutting measure client's overall symptoms have decreased by 35%. Progress Problem #1: Problem Name:: Depression Status of Goals:: obj 1 - met, ongoing work encouraged. Client is able to identify healthy coping skills like setting boundaries, self-care, and focusing on what's in her control. obj 2 - not met. Client is able to connect how her negative/distorted thoughts negatively impact her mood. She is starting to be more aware of these thought loops. Needs continued practice in stopping the negative loops. Per DSM 5 cross-cutting measure client's depression has decreased by 20%. Team Recommendations:: Team recommends continued focus on current goal and objectives to reinforce healthy coping skills and improve ability to indepe ndently thought challenge. Problem #2: Problem Name:: Anxiety Status of Goals:: obj 1 - partially met. Client can identify healthy calming skills like belly breathing, grounding tools, and mindfulness. Client does struggle with consistently applying these skills. obj 2 - not met. Per DSM 5 cross-cutting measure at review client's anxiety has decreased by 30%. Team Recommendations:: Team recommends continued focus on current goal and objectives to reinforce healthy coping skills, decrease avoidance of anxiety provoking situations, and increase confidence.
--- NOTE | 2024-02-27 09:05 | BH.SGPN.GN ---
Behaviors/Verbalizations/Mental Status: [] Eye contact is poor. Motor activity is appropriate. Appearance is casual. Speech is Appropriate. Mood is anxious. Affect is congruent. Thoughts are linear and logical. No evidence of psychosis. Reviewed daily check in sheet and no reports of suicidal ideations or intent. Client Response/Progress/Benefit: [] Pt participated at times during the group discussion. Attentive. Daily symptom tracker notes 4/5 for anxiety and 3/5 for irritability. Able to identify mental health wins and healthy habits. I woke up calm and relaxed Share with the group that her and program therapist worked together to develop a bedtime routine to help transition her from evening to sleep. Shared the impact that her sleep has had on mental health however has seen benefits from new bedtime routine. Shared that the weekend was rough and shared that she had a panic attack in a social setting. Unsure of the trigger however she did utilize calming, mindfulness, and CBT skills to work throughout the panic attack. Due to skills the panic attack was in shorter duration than in the past. She was also able to move on from the event and not ruminate, dwell, or feel like a failure for the rest of the day. Emotion for today is accomplished. Progress noted. Will continue in IOP to prevent decompensation, stabilize mood, and improve functioning. Narrative Note: []
--- NOTE | 2024-02-27 10:10 | BH.SGPN.GN ---
Behaviors/Verbalizations/Mental Status: []Eye contact is good. Motor activity is appropriate. Appearance is casual. Speech is Appropriate. Mood is euthymic. Affect is congruent. Thoughts are linear and logical. No evidence of psychosis. Client Response/Progress/Benefit: [] Pt was an engaged participant AEB listening attentively to others, taking notes, and providing feedback in small group discussions. Attentive during psychoeducation AEB by note taking and providing some input. Pt worked along with peers in small groups to define inappropriate guilt and appropriate guilt. Interactive discussion on examples of both inappropriate and appropriate guilt. Pt able to connect impact inappropriate guilt can have on MH. Pt gave an example of having inappropriate guilt about being responsible for her sister?s mental health. Benefited from increased awareness of guilt and the differences between appropriate and inappropriate guilt. Will continue in IOP to promote gains, further reduce negative thinking patterns, and improve daily functioning. Narrative Note: []
--- NOTE | 2024-02-27 11:15 | BH.SGPN.GN ---
Behaviors/Verbalizations/Mental Status: []Pt alert and oriented, casually dressed and groomed. Eye contact good. Motor activity appropriate. Speech within normal limits. Affect congruent, mood content. Thoughts linear, logical, no signs of hallucinations or delusions. Client Response/Progress/Benefit: [] Pt engaged participant AEB listening attentively to others and providing input throughout group. Pt worked within their small group to identify strategies to manage inappropriate guilt. Identified a personal example of inappropriate guilt as blaming herself for her sister's unmanaged mental health sx. Insight this cues a fear of disappointing others and not being good enough. Pt wants to work on combatting inappropriate guilt by challenging distortions, maintaining her boundaries, and focusing on self-compassion. Pt seemed to benefit from learning about strategies to manage appropriate and inappropriate guilt. Pt will continue IOP tx to promote mood stability, reinforce healthy boundaries, and prevent decompensation. Narrative Note: []
--- NOTE | 2024-03-01 09:05 | BH.SGPN.GN ---
Behaviors/Verbalizations/Mental Status: [Patient was alert and oriented, appropriately dressed and groomed. Eye contact was good, motor activity normal, speech within normal limits. Affect congruent, mood content. Thoughts linear, logical, no signs of hallucinations or delusions. Reviewed Patients symptom tracker and the patient reports moderate in anxiety/panic attacks, agitation/irritability/anger, and low in depressed mood. Patient does not report symptoms of self-harm urges or thoughts/risk of suicide] Client Response/Progress/Benefit: [Patient was engaged and open to the discussion. Patient reported her mood to be ?blah but positive?. Patients first win is that she had many anxiety attacks this week but was able to combat them efficiently with her grounding techniques. Patients second win and her stressor go together. Patient stated her family relies on her to take care of them and for her to take them to appointments. She said she told her sister that she could not take her to her appointment next week because she has other things going on. This is a stressor because she feels guilty for it and her family has tried to make her feel guilty for it too, but she stated she will not give up this boundary. Patient was interactive and respectful with other group members about their mental wins and stressors. Patient benefited from the discussion by listening to feedback and giving input on her peer?s stressors and mental health wins. Patient will continue with IOP treatment to help develop healthy skills, promote mood stability, and improve distress tolerance. ] Narrative Note: []
--- NOTE | 2024-03-01 10:10 | BH.SGPN.GN ---
Behaviors/Verbalizations/Mental Status: [] Eye contact is good. Motor activity is appropriate. Appearance is casual. Speech is Appropriate. Mood is euthymic. Affect is full. Thoughts are linear and logical. No evidence of psychosis Client Response/Progress/Benefit: [] Pt responded well to session AEB contributing to small group discussion, taking notes, and listening attentively to others. Group defined anger and discussed the benefits of managed anger and anger as a secondary emotion. Pt shared perspective on personal benefits of anger as advocating for self. Pt completed worksheet on anger triggers and personal warning signs of anger. Pt identified a common trigger as shared it with the group. Appeared to benefit from increased knowledge of the anger cycle as well as personal triggers. Will continue IOP to prevent decompensation, increase healthy coping skills, and improve functioning. Narrative Note: []
--- NOTE | 2024-03-01 11:15 | BH.SGPN.GN ---
Behaviors/Verbalizations/Mental Status: []Client alert and oriented, casually dressed and groomed. Eye contact good. Motor activity appropriate. Speech within normal limits. Affect congruent, mood content, anxious. Thoughts linear, logical, no signs of hallucinations or delusions. Client Response/Progress/Benefit: []Pt was engaged throughout AEB contributing to group discussion and self-reflection. Group finished processing cues to anger worksheet. Pt contributed as group brainstormed healthy coping skills for better managing anger which included: music, walking/exercise, taking a break, grounding tools, reflection, and journaling. Pt identified personal anger cycle and was able to make connections on how own thoughts/evaluations of a situation can worsen anger feelings. Stated will work on maintaining her boundaries to prevent unnecessary anger triggers from occurring. Pt appeared to benefit from identifying different techniques to manage anger as well as gaining awareness of potential consequences of unmanaged anger. Pt to continue IOP to promote use of healthy coping skills, promote mood stability, and prevent decompensation. Narrative Note: []
--- NOTE | 2024-03-01 15:16 | BH.MDN_ITS ---
Multi-Disciplinary Note Note 45-min Individual: Time Started:: 12:05 Date: 03/01/24 Purpose of session/treatment goals addressed:: Purpose session was to address goals 1 and 2 from MTP. Eye Contact:: Good Motor Activity:: Appropriate Appearance:: Casual Speech:: Appropriate Mood:: Euthymic Affect:: Full and Congruent Thoughts:: Linear, Logical and No evidence of hallucinations/delusions noted Staff Interventions:: CBT techniques, discharge planning, strengths perspective, goal setting and taught coping skills Client Response:: Client shared last week was incredibly difficult for her because her anxiety was significantly worse. Client shared 2 Sundays ago while at temple she had a panic attack but recognizes she was able to work through that panic attack and not escape. Client stated she continued to have panic attacks multiple times throughout the day and throughout the week. Client reported despite having numerous panic attacks she was able to try some grounding tools and self-talk to get her through the increased anxiety. Client reported this past Monday despite feeling nervous about having a another panic attack she chose to go and end up being able to enjoy herself in the present. Client stated this past Monday she woke up and she felt calm the first time in a very long time. Client reported on Monday she was started listening to music and even dance in her kitchen which again is something she has not done in a long time. Client became emotional when talking about she has finally started to see herself again over this last week. Client reported her anxiety is significantly decreased compared to last week and in general overall. Client reported another big win for her was ordering her groceries online and choosing to order something without researching the ingredients. Client stated she found it to be a little easier compared to the first time she did it couple weeks ago and is proud of herself for doing it. Client recognizes her next step will be to eat the new food without researching the ingredients which she plans to do over the next week. Client states she accomplished another goal of reaching out to one of her friends and they have scheduled to meet for dinner in the next couple weeks. Client reported she would like some help with finding a new therapist because she was reflecting last night and realizes she has made more progress in the few weeks she has been in [facility] and working with IOP individual therapist compared to how much progress she has made in the 2 years she has been working with her outpatient therapist. Client stated she does realize she does not truly connect with that therapist and that therapist does not gently challenged her in any way. Client stated she would like some referrals or recommendations on other [facility]-based counselors in the area. Client processed some anxiety about needing to reestablish her boundaries with her mom about not being available to constantly take her family members to appointments. Client stated she had set that firm boundary but is noticing that her family is trying to guilt trip for her to go back on the boundary to not constantly be everybody's everything. Therapist and client discussed conflict resolution strategies and the importance of being firm with what her boundaries is even when her mom tries to guilt client. Risks/Concerns:: Client denies suicide ideation, plan, or intention. Future oriented. Progress Toward Goals/Plan:: Progress noted with client being able to work through numerous panic attacks last week and continues to face anxiety provoking situations without avoiding completely. Client is reporting this week a decrease in anxious feelings and thoughts. Client has been working on setting firm boundaries with her family. Started discussion about discharge from IOP and client is going to reflect on what she would like in her remaining time in IOP and to identify tentative discharge time frame. Client to continue IOP to promote utilization of healthy coping skills, continue to practice boundary setting, and prevent decompensation. Time Stopped:: 12:45
--- NOTE | 2024-03-05 09:05 | BH.SGPN.GN ---
Behaviors/Verbalizations/Mental Status: [] Eye contact is good. Motor activity is appropriate. Appearance is casual. Speech is Appropriate. Mood is anxious. Affect is congruent. Thoughts are linear and logical. No evidence of psychosis. Reviewed daily check in sheet and no reports of suicidal ideations or intent. Client Response/Progress/Benefit: [] Pt did not participate in group discussions. Attentive however declined to share when asked. No progress noted as pt did not share during this group. Will continue in IOP to prevent decompensation, stabilize mood, and improve functioning. Narrative Note: []
--- NOTE | 2024-03-05 10:15 | BH.SGPN.GN ---
Behaviors/Verbalizations/Mental Status: [] Eye contact is good. Motor activity is appropriate. Appearance is casual. Speech is Appropriate. Mood is anxious. Affect is congruent. Thoughts are linear and logical. No evidence of psychosis. Client Response/Progress/Benefit: []Pt engaged participant AEB listening to others, engaging in activity, and providing feedback at times. Attentive during psychoeducation and provided insight into obstacles that impede mental wellness. Pt shared with group current mental health reality and desired mental health reality. Stated she would like to get to a place where she has more independence and builds a healthier support system. Identified barriers to desired reality include: toxic family dynamics, not taking action, unrealistic expectations, pressurizing self, and isolation. Benefited from taking look at current mental health state and obstacles for progress. Pt to continue IOP tx to continue setting boundaries, challenge distortions, and prevent decompensation.
--- NOTE | 2024-03-05 11:15 | BH.SGPN.GN ---
Behaviors/Verbalizations/Mental Status: []Pt alert and oriented, casually dressed and groomed. Eye contact good. Motor activity appropriate. Speech within normal limits. Affect congruent, mood dysthymic, anxious. Thoughts linear, logical, no signs of hallucinations or delusions. Client Response/Progress/Benefit: []Pt participated in group discussion and activity. Worked with group to identify strategies to help overcome barriers and obstacles to desired reality. Group developed strategies for the common barriers of avoidance, poor boundaries, unrealistic expectations, low self-confidence, and isolation. Identified personal barriers to desired reality and choose one obstacle to work on this week which was poor boundaries. Pt plans to do this by reminding herself to ?sit with the uncomfortable? rather than giving into people pleasing tendencies. Pt seemed to benefit from group by identifying obstacles and solutions to desired reality. Will continue IOP tx to prevent decompensation, improve grounding and anxiety management techniques, and improve daily functioning. ? Narrative Note: []
--- NOTE | 2024-03-08 10:15 | BH.SGPN.GN ---
Behaviors/Verbalizations/Mental Status: [] Eye contact is good. Motor activity is appropriate. Appearance is casual. Speech is Appropriate. Mood is euthymic. Affect is congruent. Thoughts are linear and logical. No evidence of psychosis. Client Response/Progress/Benefit: []Client was an active participant during interactive group discussions. Attentive during psychoeducation on the six types of boundaries (physical, emotional, intellectual, sexual, time, and material) AEB note-taking and input in group discussions. Along with peers contributed to interactive discussion on defining what a boundary is in mental health. Client along with peers identified challenges to setting boundaries which included; lack of self awareness, guilt, generational cycles, fear of disappointing the other person, etc. Client along with peers identified the benefits to setting boundaries such as increased identify of self, genuine relationships, self-care, and increased confidence. Group discussed the mental health benefits to establishing boundaries at work, school, and home. Client benefited from increased awareness and insight on the importance/benefit to setting health boundaries. Will continue in IOP to prevent decompensation, increase self care and improve functioning. Narrative Note: []
--- NOTE | 2024-03-08 11:15 | BH.SGPN.GN ---
Behaviors/Verbalizations/Mental Status: [] Eye contact is good. Motor activity is appropriate. Appearance is casual. Speech is Appropriate. Mood is euthymic. Affect is congruent. Thoughts are linear and logical. No evidence of psychosis. Client Response/Progress/Benefit: [] Client responded well to session AEB listening attentively to peers, providing some input, as well as taking notes throughout. Client contributed more throughout psychoeducation on different boundary setting styles which is progress as she has struggled to share in prior groups. Reports connecting most with rigid style of boundary setting, identifying that they have past hurts that greatly influence their current boundary setting style. Participated in group discussion brainstorming various strategies for improving healthy boundary settings, as a group identified practicing in a mirror, starting with easy/small boundaries, and not overly apologizing as strategies to try. Seemed to benefit from increased awareness of how different boundary styles can impact mental health. Will continue IOP tx to increase overall funcitoning increase self-care and anxiety management, and prevent decompensation. Narrative Note: []
--- NOTE | 2024-03-08 11:43 | BH.MDN ---
Multi-Disciplinary Note Note 45-min Individual: Time Started:: 09:02 Date: 03/08/24 Purpose of session/treatment goals addressed:: Purpose of session was to address goals 1 and 2 from MTP. Eye Contact:: Good Motor Activity:: Appropriate Appearance:: Neat Speech:: Appropriate Mood:: Anxious Affect:: Congruent Thoughts:: Linear, Logical and No evidence of hallucinations/delusions noted Staff Interventions:: thought challenging, CBT techniques, mindfulness skills, discharge planning, strengths perspective, goal setting and taught coping skills Client Response:: Client stated she was able to set a boundary with her family and offered to help guide them on how to do the task they wanted her to do. Client stated her family tends to immediately be upset when client says no to them but was somewhat receptive to her starting to teach them how to do more things independently. Client recognizes being willing to guide them on some these tasks will help her in the long run versus continue to do them for them and they will always rely on her. Client stated she was faced with a stressor over the weekend that she is continuing to slightly ruminate about. Client shared essentially over the weekend she found out that her proration clerk of her latter day has feelings for her beyond friendship. Client stated she thinks she made it clear that she did not feel the same way about him. Client reported following the situation she noticed that the proration clerk's behavior started changing in regards to how he interacted with her on social media. Client stated she was confused that her response internally was rejection for this response. Client stated she also felt an high anxiety, overwhelmed, and shame. Client stated she was trying to process these feelings and really confused as to why she was feeling so many different emotions that were a bit judgmental of herself. Client reported on Monday she did utilize ops action by going to latter day service and not avoiding. Client stated she has been using a lot of positive self-talk to remind herself that this situation does not have to hinder her from going to latter day which is something that she really enjoys and finds to be comfort. Client stated she has noticed her anxiety is continuing to be slightly elevated following this situation. She is trying to remember to look at the facts of situation and reminders of its okay to say no if she is not feel the same way about somebody. Client and this therapist processed some of her emotions about the situation and problem solved about next interaction with the proration clerk. Client stated she will continue to attend latter day and not let this keep her from attending her healthy coping skill. Risks/Concerns:: Denies suicide ideation, plan, and intention. Future oriented. Progress Toward Goals/Plan:: Progress noted with client utilizing thought challenge, positive self talk, and boundary setting. Client does report a slight increase in anxious symptoms. Client is trying to be more social to work on decreasing anxious avoidance. Plan is for client to continue IOP to promote utilization of healthy coping skills, challenge distortions, and prevent decompensation. Time Stopped:: 09:50
== END 2024-03-19 23:59 ==
LOC: BHIOP 07:15
PROVIDERS: PCP Internal Medicine; Referring Provider Psychiatry & Neurology Psychiatry; Visit Provider Psychiatry & Neurology Psychiatry
DX: F41.1 Generalized anxiety disorder (principal); F33.1 Major depressive disorder, recurrent, moderate; F43.10 Post-traumatic stress disorder, unspecified; F41.0 Panic disorder [episodic paroxysmal anxiety]; Z79.899 Other long term (current) drug therapy
CPT/HCPCS: 99214; H2012; H2020; S9480; 90834

== ENCOUNTER 2024-03-20 06:31 | Outpatient (RCR) | payer MEDICAID, SELFPAY ==
[2024-03-20 00:21] VITALS: BP 112/74; PULSE 74
--- NOTE | 2024-03-20 10:20 | BH.COMM ---
Communication Note Communication with Client Communication Note: Client hasn't been to [facility] in two weeks due to experiencing post-concussion syndrome symptoms recently. Client unable to see [facility] psychiatrist this week due to her symptoms. Client offered individual counseling session this week.
--- NOTE | 2024-03-20 10:20 | BH.COMM_ITS ---
Communication Note Communication with Client Communication Note: Client hasn't been to [facility] in two weeks due to experiencing post-concussion syndrome symptoms recently. Client unable to see [facility] psychiatrist this week due to her symptoms. Client offered individual counseling session this week.
--- NOTE | 2024-03-22 14:36 | BH.MDN ---
Multi-Disciplinary Note Note 30-min Individual: Time Started:: 13:30 Date: 03/22/24 Purpose of session/treatment goals addressed:: Purpose of session was to address goals 1 and 2 from MTP. Eye Contact:: Good Motor Activity:: Appropriate Appearance:: Neat Speech:: Appropriate Mood:: Euthymic and Anxious Affect:: Congruent Thoughts:: Linear, Logical and No evidence of hallucinations/delusions noted Staff Interventions:: thought challenging, CBT techniques, strengths perspective, goal setting and taught coping skills Client Response:: Client shared she was having post concussion symptoms last week which she attributes to maybe doing too much. Client said around day six of post concussion symptoms she recognized her anxiety was contributing to her experience of post concussion symptoms. Client said at that point she decided she needed to gently push yourself to get out of the house and not go back to doing things like she was before like isolating. Client stated she did also Go to [employer] despite her anxiety. Client stated she is feeling stressed and irritated that one of her sisters that she does not get along with is coming home for Mother's Day. Client stated the way her mom set up this gathering frustrated client because her thoughts or opinions were not inquired about. Client stated her mom knows that clients relationship with this sister is not good yet the mom set it up so that interaction between the two of them would be inevitable. Client and therapist work together to problem solve and discuss how client would like to address this situation with her mom. Client reported she has been doing so well with maintaining and setting boundaries with their family and recognizes she needs to continue to hold her ground so she's not put in situations like she will be for Mother's Day. Client reported she is feeling anxious about the situation but with assistance from therapist starting to realize she's not required to be around this sister all day if she doesn't want to be. Client stated she has been making significant gains with how she handles her family and manages her own mental health. Client reported she is glad that she gave herself a break from the IOP the last two weeks because she was experiencing those chronic post concussion syndrome symptoms. Client stated she is feeling ready for discharge from [facility] next week. Client stated she will continue to practice healthy coping skills and address the stressor with her mom over the weekend. Client stated today she is going to a park with a person she met at [facility] which she is hopeful can turn into a friendship. Client shared she is proud of herself for initiating a hangout outside of [employer]. Risks/Concerns:: Denies suicidal ideation, plan, or intention to date. Future oriented. Progress Toward Goals/Plan:: Progress noted with client showing increased awareness that her anxiety was impacting her post-concussion symptoms. Additional progress noted with client stating she initiating a hangout with another person at [employer] to help widen her healthy social support net. Client continues to report working on setting and maintaining boundaries with family. Plan is for client to discharge from IOP next week. Client to continue IOP to maintain progress, continue working on setting/maintaining boundaries, and prevent decompensation. Time Stopped:: 14:00
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
--- NOTE | 2024-03-29 10:10 | BH.SGPN.GN ---
Behaviors/Verbalizations/Mental Status: [] Eye contact is good. Motor activity is appropriate. Appearance is casual. Speech is Appropriate. Mood is anxious. Affect is congruent. Thoughts are linear and logical. No evidence of psychosis Client Response/Progress/Benefit: [] Client was an active participant in group discussion and experiential activity. Attentive during psychoeducation on resilience. Participated during interactive discussion with peers on the definition of resilience. Group worked together to identify what can impact one's ability to be resilient which included; relationships. past experiences, trauma, support system, lack of resources,and current mental/physical health state. Group also worked together to identify the benefits of being resilient which included; increased self-worth, increased ability to cope, personal growth, can inspire others, and increased confidence. Able to relate experiential activity of group juggle to topics of resilience. Worked well with peers in small group in which they identified factors that contribute to resilience. Benefited from increased awareness of resilience and the factors that contribute to building resilience. Set to discharge from [facility] today. Narrative Note: []
--- NOTE | 2024-03-29 11:10 | BH.SGPN.GN ---
Behaviors/Verbalizations/Mental Status: []Pt alert and oriented, casually dressed and groomed. Eye contact good. Motor activity appropriate. Speech within normal limits. Affect congruent, mood content, euthymic. Thoughts linear, logical, no signs of hallucinations or delusions. Client Response/Progress/Benefit: []Pt responded well to session AEB completing the resilience worksheet provided. Pt participated in the discussion and worked cooperatively with group to identify strategies to enhance each of the components discussed. Pt reports belief they already use resilience trait of??self-awareness? and ?maintain a hopeful outlook?. Pt stated they would like to continue to develop resilience trait of ?make connections? as pt feels she would benefit from incorporating regular socialization outside of family. Pt seemed to benefit from discussing strategies for improving personal resilience and identifying resilience traits pt already possesses. Will d/c from IOP tx and continue outpatient counseling to prevent decompensation and maintain gains.? Narrative Note: []
--- NOTE | 2024-03-29 15:25 | BH.MDN ---
Multi-Disciplinary Note Note 45-min Individual: Time Started:: 12:10 Date: 03/28/24 Purpose of session/treatment goals addressed:: Purpose of session was to identify treatment progress, complete maintenance plans, and solidify aftercare plans. Eye Contact:: Good Motor Activity:: Appropriate Appearance:: Neat Speech:: Appropriate Mood:: Euthymic Affect:: Full Thoughts:: Linear, Logical and No evidence of hallucinations/delusions noted Staff Interventions:: CBT techniques, discharge planning, strengths perspective, reviewed DSM-5 and other (maintenance plan) Client Response:: Client reported feeling excited and anxious about it being her last day in [facility]. Client stated she has made so much progress since starting IOP and does feel ready to discharge. Client shared she is proud of herself for initiating a hangout with a friend from [employer] and felt like their first hangout went really well. Client stated she is excited to work on building a healthy support network. Client stated progress she has made is improved confidence, recognizing personal value, getting back to her personality, decreased anxiety, and better with setting boundaries. Client reported reflecting back to how she was functioning prior to IOP she has made significant treatment progress. Client stated prior to IOP she hadn't left her room for 12 days due to her anxiety and depression. Client reported she now is going to [employer], meeting a friend out, and leaving her house often. Client reported she also didn't set boundaries with her family previously which often led to her feeling overwhelmed and not having time for self-care. Client stated by setting boundaries with her family she is finally choosing her own needs and no longer enabling her family. Client worked with therapist to complete her maintenance plan in which she identified triggers, warning signs, self-care activities, and healthy coping strategies. Risks/Concerns:: Client denies suicidal ideation, plan, or intention to date. future oriented. Progress Toward Goals/Plan:: Progress noted with client reporting improved mood, decreased anxiety, improved daily functioning, increased socialization, improved view of self, and ability to challenge thoughts. Client has made significant treatment progress and will discharge from [facility] today. Time Stopped:: 13:00
== END 2024-03-29 13:29 | disposition home or self-care (01) ==
LOC: BHIOP 06:31
PROVIDERS: PCP Internal Medicine; Referring Provider Psychiatry & Neurology Psychiatry; Visit Provider Psychiatry & Neurology Psychiatry
DX: F41.1 Generalized anxiety disorder (principal); F33.1 Major depressive disorder, recurrent, moderate; F43.10 Post-traumatic stress disorder, unspecified; F41.0 Panic disorder [episodic paroxysmal anxiety]; Z79.899 Other long term (current) drug therapy
CPT/HCPCS: H2020; S9480; 90832; 90834

== ENCOUNTER 2024-04-04 12:00 | Outpatient (RCR) | payer MEDICAID, SELFPAY ==
--- NOTE | 2024-04-04 14:00 | BH.COMM ---
Communication Note Communication with Client Communication Note: Patient completed IOP and presents today to start relapse prevention group which meets once weekly (1.5 hours) for 8 weeks. Case discussed with Dr. Kingsley with plan to admit with dx of F33.1
--- NOTE | 2024-04-04 14:00 | BH.SGPN.GN ---
Behaviors/Verbalizations/Mental Status: []Pt alert and oriented, neatly dressed. Eye contact good. Motor activity appropriate. Speech within normal limits. Affect congruent, mood motivated. Thoughts linear, logical, no signs of hallucinations or delusions. Client Response/Progress/Benefit: []Pt receptive of session, engaged and providing supportive feedback throughout group. Pt reports being consistent with medications and she is actively looking for a new therapist. Pt reports numerous stressors this week, but she was proud of herself for setting and maintaining healthy boundaries. Pt engaged in the discussion about self-love and participated in the experiential activity that highlighted the acceptance component of self-love. Reports wanting to work on self-love by writing a letter of appreciation for her body. Seemed to benefit from reviewing treatment progress and strategies for managing current stressors, as well as learning about how to increase self-love. Pt to continue IOP aftercare tx to promote mood stability, reinforce gains made in IOP, and review coping skills from IOP. Narrative Note: []
--- NOTE | 2024-04-18 14:00 | BH.SGPN.GN ---
Behaviors/Verbalizations/Mental Status: []Client alert and oriented, neatly dressed and groomed. Eye contact good. Motor activity appropriate. Speech within normal limits. Affect congruent, mood euthymic. Thoughts linear, logical, no signs of hallucinations or delusions. Client Response/Progress/Benefit: [] Receptive of session, engaged throughout. Pt reports she selected a new therapist and now she is waiting to be scheduled. Pt has been consistent with medications and she has used a lot of coping skills recently to cope with family stressors. Pt reports she set firm boundaries, advocated for herself, reframed negative thoughts, and has been ?saying no.? ?Engaged and attentive during discussion of vulnerability and benefits of practicing vulnerability. Group discussed ways we avoid feeling vulnerable and how this negatively affects mental health and relationships. Pt identified ?dress rehearsing for tragedy? as a way pt avoids being vulnerable. Pt wants to work on being vulnerable by being more transparent to one friend from [employer]. Appeared to benefit from group support and discussion reflecting on the positive impact vulnerability can have on mental health. Pt will continue with aftercare tx to maintain gains and prevent decompensation. Narrative Note: []
== END 2024-04-19 23:59 ==
LOC: BHOG 12:00
PROVIDERS: PCP Internal Medicine; Referring Provider Psychiatry & Neurology Psychiatry; Visit Provider Psychiatry & Neurology Psychiatry
DX: F41.1 Generalized anxiety disorder (principal); F33.1 Major depressive disorder, recurrent, moderate; F43.10 Post-traumatic stress disorder, unspecified; F41.0 Panic disorder [episodic paroxysmal anxiety]; Z79.899 Other long term (current) drug therapy
CPT/HCPCS: 90853

== ENCOUNTER 2024-04-22 08:08 | Outpatient (RCR) | payer MEDICAID, SELFPAY ==
--- NOTE | 2024-04-25 14:00 | BH.SGPN.GN ---
Behaviors/Verbalizations/Mental Status: []Pt alert and oriented, casually dressed and groomed. Eye contact good. Motor activity appropriate. Speech within normal limits. Affect congruent, mood content, anxious. Thoughts linear, logical, no signs of hallucinations or delusions. Client Response/Progress/Benefit: []Pt responded well to session AEB sharing and listening attentively to others. Pt has been consistent with outpatient mental health appointments and medication compliance. Pt reports using positive self-talk, opposite action, self-care, and thought challenging to help with managing mental health symptoms. Pt participated in group discussion defining affirmations and why they are important. 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 Pt appeared to benefit from increased knowledge of affirmation writing skills and creating their own affirmation statements to remind themselves of outside tx environment. Will continue aftercare tx to promote consistent mental health maintenance and prevent decompensation. Narrative Note: []
--- NOTE | 2024-04-25 14:52 | BH.TPR ---
Treatment Plan Review Demographics Date of Admission:: 04/04/24 Date of Treatment Plan Review:: 04/25/24 Admitting Diagnoses:: 1. Generalized anxiety disorder F41.1 2. Major depressive disorder, recurrent, moderate 3. PTSD 4. Panic disorder Current Diagnoses:: 1. Generalized anxiety disorder F41.1 2. Major depressive disorder, recurrent, moderate 3. PTSD 4. Panic disorder Patient Status Patient's Response to Treatment:: Pt continues to respond well to treatment AEB pt's ongoing attentiveness, engagement in group discussions, and continued reporting use of skills outside treatment environment. Pt has missed a couple of sessions, but when has attended she is engaged. Status of Current Problems and Symptoms: Pt is reporting continued improvement in her mental health with ability to manage emotions, challenging negative thoughts, and continuing to set boundaries with others. Pt reports mild to moderate anxious symptoms. Pt recognizes her anxious thoughts can exasperate her post-concussion symptoms. Pt's biggest stressors are post concussion symptoms, maintaining boundaries with family, and needing to find new housing situation. Progress Problem #1: Problem Name:: Pt will maintain or see a reduction in sx. Status of Goals:: Obj 1 - partially met, ongoing work encouraged. Pt did not return DSM 5 cross-cutting measure so data is unavailable. Progress can be noted per pt's report of being able to manage anxious symptoms more effectively, using opposite action, and continuing to set boundaries. Obj 2 - complete with ongoing work encouraged. Pt had been reporting using opposite action, challenging negative thoughts, being kinder to herself, and setting boundaries. Team Recommendations:: Recommended client continue IOP aftercare group in order to maintain gains. Pt also recommended to continue working on setting boundaries and challenging negative thoughts.
--- NOTE | 2024-05-09 14:00 | BH.SGPN.GN ---
Behaviors/Verbalizations/Mental Status: []Pt alert and oriented, neatly dressed and groomed. Eye contact good. Motor activity appropriate. Speech within normal limits. Affect congruent, mood euthymic. Thoughts linear, logical, no signs of hallucinations or delusions. Client Response/Progress/Benefit: []Pt receptive of session, engaged throughout. Pt stated she has therapy and psychiatry scheduled and is taking her medications consistently. Client stated she had a big win recently by overcoming anxious thoughts and going to a car show with a friend. Client stated she wanted to cancel on her friend, but reached out for support which helped her push through the anxious/negative thoughts. Client reported feeling proud of herself for going. Receptive of discussion on personal accountability and its importance in maintaining mental health stability. Engaged in brainstorming strategies for improving ability to hold themselves accountable and participated in the activity. Pt seemed to benefit from support from peers and increasing understanding of personal accountability benefits and strategies. Will continue IOP aftercare group to maintain gains and prevent decompensation.
== END 2024-05-19 23:59 ==
LOC: BHOG 08:08
PROVIDERS: PCP Internal Medicine; Referring Provider Psychiatry & Neurology Psychiatry; Visit Provider Psychiatry & Neurology Psychiatry
DX: F33.1 Major depressive disorder, recurrent, moderate (principal); F41.1 Generalized anxiety disorder; F43.10 Post-traumatic stress disorder, unspecified; F41.0 Panic disorder [episodic paroxysmal anxiety]; Z79.899 Other long term (current) drug therapy
CPT/HCPCS: 90853

== ENCOUNTER 2024-05-20 07:16 | Outpatient (RCR) | payer OTHER, SELFPAY ==
--- NOTE | 2024-05-30 14:00 | BH.SGPN.GN ---
Behaviors/Verbalizations/Mental Status: []Pt alert and oriented, neatly dressed and groomed. Eye contact good. Motor activity appropriate. Speech within normal limits. Affect congruent, mood euthymic and sad. Thoughts linear, logical, no signs of hallucinations or delusions. Client Response/Progress/Benefit: []Pt responded well to session, attentive and engaged. Receptive to feedback. Pt reports they have been following up with her outpatient appointments and medications to maintain her mental wellness. Pt reports she has been struggling with a recent setback and grief about her post-concussion syndrome. Hydrometer Finisher and group offered support and feedback on coping with grief and negative thinking which pt appeared to benefit from. Pt shared using skills like self-talk, deep breathing, challenging distortions, and giving herself credit. Pt responded well to discussion of problem-solving including the strategies for problem-solving. Pt participated in the group activity and helped peers find a way to overcome the challenge obstacles. Pt was encouraged to take the problem-solving strategies and apply them outside of IOP aftercare. Pt will continue IOP aftercare to promote mood stability, reinforce healthy coping skills, and promote gains. Narrative Note: []
--- NOTE | 2024-05-30 14:27 | BH.DS ---
Discharge Summary Demographics Date of Admission:: 04/04/24 Discharge Date: 05/30/24 Presenting Problems at Admission:: Pt discharged from IOP tx and transitioned to [facility] aftercare to maintain gains pt made in IOP and to reinforce healthy coping skills. At admission to [facility] aftercare, pt continued to report symptoms of anxiety and mild depression, but of reduced intensity. Pt had psychosocial stressors she was coping with having to set boundaries with her family. Discharge Diagnoses:: 1. Generalized anxiety disorder F41.1 2. Major depressive disorder, recurrent, moderate 3. PTSD 4. Panic disorder Reason for Discharge:: Pt has met treatment goals, has been able to maintain her treatment progress, and reports feeling ready to discharge from aftercare. Treatment Progress During Treatment & Response: Pt responded well and made progress in IOP aftercare as evidenced by pt's participation in group discussions and self-report of applying coping skills. Pt's overall DSM-5 scores decreased by 38% from IOP admission. Pt?s scores for anxiety decreased by 30%, and depression decreased by 40% compared to admission IOP scores. Additionally, at discharge pt reported being able to attend a community event with a lot of people without have a panic attack. Pt stated she wanted to cancel on her friend, but is proud of herself for making herself face her fears. Pt has reported significant improvement with decreased avoidance of anxious situations. Issues Still to be Addressed:: Pt could benefit from continue work on exposure to anxiety provoking situations. Working on boundary setting and maintaining those boundaries. Discharge Recommendations/Instructions:: Pt is to start seeing her new outpatient counselor now that aftercare is finishing. Pt is to continue seeing her PCP for medication management. Discharge Handout
--- NOTE | 2024-06-06 14:00 | BH.SGPN.GN ---
Behaviors/Verbalizations/Mental Status: []Pt alert and oriented, neatly dressed and groomed. Eye contact good. Motor activity appropriate. Speech within normal limits. Affect congruent, mood content. Thoughts linear, logical, no signs of hallucinations or delusions. Client Response/Progress/Benefit: []Pt responded well to session, Pt reports they see their therapist following completion of aftercare tx and is consistent with medications. Pt reflected on the coping skills pt has been using such as positive self-talk, healthy distraction, and opposite action. Pt engaged well during the discussion on intrinsic and extrinsic motivation. Pt connected with the benefits of developing strong sources of intrinsic motivation and participated in brainstorming strategies to do so. Pt identified plans to begin reflecting on her personal values to improve own intrinsic motivation. Pt appeared to benefit from psychoeducation on different sources of motivation and ways to improve motivation. Will continue outpatient tx to maintain gains as she is d/c from after care today. Narrative Note: []
== END 2024-06-11 07:01 | disposition home or self-care (01) ==
LOC: BHOG 07:16
PROVIDERS: PCP Internal Medicine; Referring Provider Psychiatry & Neurology Psychiatry; Visit Provider Psychiatry & Neurology Psychiatry
DX: F41.1 Generalized anxiety disorder (principal); F33.1 Major depressive disorder, recurrent, moderate; F41.0 Panic disorder [episodic paroxysmal anxiety]; F43.10 Post-traumatic stress disorder, unspecified
CPT/HCPCS: 90853

== ENCOUNTER 2024-08-15 23:27 | Emergency (ER) | payer MEDICAID, SELFPAY ==
[2024-08-15 23:30] VITALS: BP 138/76; PULSE 88; RESP 18; TEMP 36.7; O2SAT 98; BMI 27.3
--- NOTE | 2024-08-16 00:10 | EKG12_ITS ---
Test Reason : ANXIETY Blood Pressure : / mmHG Vent. Rate : 078 BPM Atrial Rate : 078 BPM P-R Int : 148 ms QRS Dur : 072 ms QT Int : 354 ms P-R-T Axes : 061 036 042 degrees QTc Int : 403 ms Normal sinus rhythm with sinus arrhythmia Normal ECG Confirmed by MARTINA PALMA, NANCY ([id number]), tape editor SAMSON ARIAS ([id number]) on 08/19/2024 7:28:09 AM Referred By: Confirmed By:NANCY MACK MD
--- NOTE | 2024-08-16 00:10 | RAD_ITS ---
EXAM: XR CHEST, 2 VIEWS CLINICAL INDICATION: CP TECHNIQUE: Frontal and lateral views of the chest. COMPARISON: 2 view chest 09/15/2007 FINDINGS: LUNGS AND PLEURAL SPACES: Unremarkable. No consolidation or edema. No pneumothorax. No effusion. HEART: Unremarkable. Cardiac silhouette not enlarged. MEDIASTINUM: Central airways and mediastinal contour are unremarkable. BONES/JOINTS: Unremarkable. No acute fracture. SOFT TISSUES: Unremarkable. RAD/Chest PA and Lateral IMPRESSION: No radiographic evidence of acute cardiopulmonary disease. Electronically Signed: Dimitri Drew MD at 1:03 EDT ,
[2024-08-16] MEDS: 0.9% Normal Saline (1000mL) 1,000 ML 999 ML IV (00:20)
[2024-08-16 00:33] LABS: Absolute Lymphocyte Count 1.39 X10^3/uL (0.83-4.51); Absolute Neutrophil Count 4.7 X10^3/uL (2.0-7.7); Basophil# 0.03 X10^3/uL; Basophil% 0.5 % (0-1); Eosinophil# 0.04 X10^3/uL; Eosinophils% 0.6 % (0-5); Hematocrit 36.1 % (37-47); Hemoglobin 11.5 g/dL (12.0-15.0); Lymphocyte # 1.39 X10^3/ul (0.83-4.51); Lymphocyte % 20.9 % (19-41); Mean Corp Hgb Conc 31.9 g/dL (32-36); Mean Corpuscular Hgb 30.8 pg (27.0-32.0); Mean Corpuscular Volume 96.8 fL (81-99); Mean Platelet Vol. 11.3 fl (6.2-12.0); Monocyte# 0.44 X10^3/uL; Monocyte% 6.6 % (0-10); NRBC Flagged by Analyzer 0 % (0-5); Neutrophil # 4.71 X10^3/uL (2.7-7.7); Neutrophil % 70.9 % (47-70); Platelet Count 200 K/mm3 (150-450); RBC Distribution Width CV 11.8 % (11.6-14.6); RBC Distribution Width SD 42.1 fl (35.1-43.9); Red Blood Count 3.73 M/mm3 (4.2-5.4); White Blood Count 6.6 K/mm3 (4.4-11.0)
--- NOTE | 2024-08-16 00:36 | EX.ED.DYSGE1 ---
HPI History of Present Illness Chief Complaint: Anxiety Narrative Narrative: Patient is a 38-year-old female with a history of panic disorder, PTSD, depression, generalized anxiety disorder who states that she took her first dose of a new medication Pristiq that she was prescribed yesterday by her behavioral health team and noted that about 40 minutes after that she developed feeling of increased anxiety, chest pressure and nausea. Patient states that she was planning on calling the clinic and noted that the facility will be closed tomorrow prompting her to come here for further evaluation management. Patient denies any history of blood clots denies any recent travel history denies any recent sick contacts. Patient states that she has not vomited. [facility] Medical History Panic disorder PTSD (post-traumatic stress disorder) Major depressive disorder, recurrent, moderate Generalized anxiety disorder Post concussion syndrome Home Medications ?Medication ?Instructions ?Recorded ?Last Taken ?Type amitriptyline 25 mg tablet 25 mg PO DAILY 12/17/22 Unknown History buspirone 5 mg tablet 5 mg PO TID 30 days #90 tabs 01/31/24 Unknown Rx desvenlafaxine succinate 25 mg 25 mg PO QDAY #30 tabs 08/14/24 Unknown Rx tablet,extended release 24 hr (Pristiq) Allergy/AdvReac Type Severity Reaction Status Date / Time peanut Allergy Hives Verified 08/15/24 23:29 Family History Father Anxiety CAD (coronary artery disease) Hypertension Depression Mother Anxiety Depression Hypertension Kidney disease Sister Anxiety Depression Seizures Surgical History History of appendectomy Social History Smoking Status: Never smoker alcohol intake: never substance use type: does not use what type of physical activity do you participate in: none ROS ROS ED ROS Narrative Constitutional: Denies fevers, chills, headaches, lightness, dizziness Eyes: Denies double vision blurry vision changes vision Cardiovascular: Complains of chest tightness denies any palpitations Respiratory: Denies coughing wheezing shortness of breath Abdomen: Denies abdominal pain nausea vomit diarrhea : Denies any urinary symptoms Neurological: Denies any numbness, weakness, tingling Musculoskeletal: Denies any back pain Skin: Denies rashes or lesions EXAM Physical Exam Narrative Exam Narrative: General: Patient lying in bed rest comfortably did not appear to be in acute distress Head: Atraumatic, normocephalic Eyes ears, nose, throat: PERRL bilateral, EOMI bilateral, no conjunctival injection noted, no intraoral lesions noted, uvula midline Neck: Soft, supple, trachea midline Cardiovascular: Regular rate and rhythm no murmurs gallops rubs noted Respiratory: Clear to auscultation bilaterally no rales rhonchi wheeze noted Abdomen: Soft, nondistended, nontender to palpation, bowel sounds present x 4 Extremities: +5/5 strength noted in the bilateral upper and lower extremities, no pedal edema no exam, radial pulses +2/4 in the bilateral upper extremities Neurological: Patient is following commands knew that she was at [facility] year is 2023. Skin: Warm, dry, intact Const Vital Signs: 08/15/24 23:30 08/16/24 00:21 Temperature 98.0 F Temperature Source Oral Pulse Rate 88 Respiratory Rate 18 Blood Pressure 138/76 H Blood Pressure Mean 96 Pulse Ox 98 Oxygen Delivery Method Room Air Room Air MDM MDM MDM Narrative Medical decision making narrative: Patient is a 38-year-old female who presents to the emergency department the chief complaint of developing worsening anxiety i, chest pressure about 40 minutes after taking her Pristiq. Patient will have a workup performed here on the differential diagnose includes but not limited to ACS, PE although feel that this less likely as her Marathon score is low risk, anxiety, panic attack. Once workup is obtained reviewed she will be reevaluated. Patient CBC reviewed showed no evidence leukocytosis white blood count normal at 6.6, hemoglobin stable 11.5, platelet count normal at 200. Patient sodium normal at 139, potassium normal at 4, creatinine was noted to be 1.08, troponin normal at 5 with an EKG obtained and reviewed and independently interpreted by myself which showed sinus rhythm with a rate of 78 bpm with a normal QTc. Patient's chest x-ray reviewed and showed no acute cardiopulmonary processes. This was reviewed by myself and by radiology. On reevaluation of the patient she is feeling better she would like to go home at this point time. Patient was advised to follow-up with her behavioral health team in the outpatient setting. She was advised to follow-up with her primary care physician outpatient setting. She was advised to return with worsening symptoms or other concerns. All question concerns answered she was discharged home in stable condition. Lab Data Labs: Laboratory Results - last 24 hr 08/16/24 00:25 WBC 6.6 RBC 3.73 L Hgb 11.5 L Hct 36.1 L MCV 96.8 MCH 30.8 MCHC 31.9 L RDW Std Deviation 42.1 RDW Coeff of Doug 11.8 Plt Count 200 MPV 11.3 Immature Gran % (Auto) 0.500 Neut % (Auto) 70.9 H Lymph % (Auto) 20.9 [place] % (Auto) 6.6 Eos % (Auto) 0.6 Baso % (Auto) 0.5 Absolute Neuts (auto) 4.7 Absolute Lymphs (auto) 1.39 Nucleated RBC % 0 Sodium 139 Potassium 4.0 Chloride 108 H Carbon Dioxide 26.0 Anion Gap 6 BUN 12 Creatinine 1.08 H Estim Creat Clear Calc 79.96 Est GFR (MDRD) Af Amer 73 Est GFR (MDRD) Non-Af 60 BUN/Creatinine Ratio 11.1 Glucose 108 H Calcium 9.0 Troponin I High Sens 5 Radiography Diagnostic Testing: Clinical Impression(s) from Imaging Studies Chest X-Ray 08/16/24 00:10 IMPRESSION: No radiographic evidence of acute cardiopulmonary disease. Electronically Signed: Dimitri Drew MD at 1:03 EDT Reading Location ID and State: [facility] / [place] Tel , Service support , Discharge Plan Triage Chief Complaint: Anxiety ED Provider: Daniel Carrillo Dx/Rx/DC Orders Clinical Impression: Anxiety Prescriptions: No Action desvenlafaxine succinate [Pristiq] 25 mg tablet extended release 24 hr 25 mg PO QDAY Qty: 30 2RF amitriptyline 25 mg tablet 25 mg PO DAILY buspirone 5 mg tablet 5 mg PO TID 30 Days Qty: 90 1RF Primary Care Provider: Mahendra Henderson Referrals: Mahendra Henderson MD [Primary Care Provider] - Activity Restrictions/Additional Instructions: Follow-up with your psychiatrist in the outpatient setting. Return with worsening symptoms or any other concerns. Follow-up your primary care physician in the outpatient setting. Print Language: Chinese Disposition Disposition: Home, Self Care
[2024-08-16 00:54] LABS: Anion Gap 6 (5-15); BUN 12 mg/dL (7-18); BUN/Creat Ratio 11.1 RATIO (10-20); Chloride 108 mmol/L (98-107); Creatinine, Serum 1.08 mg/dL (0.55-1.02); EST Glomerular Filtration Rate 60 mL/min (>60); Est Glom Filt Rate - Afr Amer 73 mL/min (>60); Estimated Creatinine Clearance 79.96 ml/min; Glucose 108 mg/dL (74-106); Sodium Level 139 mmol/L (136-145); Troponin-I HS 5 pg/mL (3.0-54.0)
[2024-08-16 02:07] VITALS: BP 136/84; PULSE 81; RESP 16; TEMP 36.8; O2SAT 100
== END 2024-08-16 02:08 | disposition home or self-care (01) ==
PROVIDERS: Emergency Provider Emergency Medicine; PCP Internal Medicine; Visit Provider Emergency Medicine
DX: F41.1 Generalized anxiety disorder (principal); F33.1 Major depressive disorder, recurrent, moderate; Z79.899 Other long term (current) drug therapy; Z90.49 Acquired absence of other specified parts of digestive tract
CPT/HCPCS: J2405; 71046; 80048; 84484; 85025; 93005; 96360; 96361; 99284; J7030; A4216

== ENCOUNTER 2024-08-17 13:46 | Emergency (ER) | payer MEDICAID, SELFPAY ==
[2024-08-17 13:46] VITALS: BP 119/84; PULSE 83; RESP 16; TEMP 36.6; O2SAT 98; BMI 26.2
[2024-08-17 14:24] LABS: Absolute Neutrophil Count 2.6 X10^3/uL (2.0-7.7); Basophil# 0.03 X10^3/uL; Basophil% 0.6 % (0-1); Eosinophil# 0.07 X10^3/uL; Eosinophils% 1.3 % (0-5); Hematocrit 37.1 % (37-47); Hemoglobin 11.7 g/dL (12.0-15.0); Lymphocyte % 38.4 % (19-41); Mean Corp Hgb Conc 31.5 g/dL (32-36); Mean Corpuscular Hgb 31.1 pg (27.0-32.0); Mean Corpuscular Volume 98.7 fL (81-99); Monocyte% 9.6 % (0-10); NRBC Flagged by Analyzer 0 % (0-5); Neutrophil % 49.9 % (47-70); Platelet Count 202 K/mm3 (150-450); RBC Distribution Width CV 11.9 % (11.6-14.6); RBC Distribution Width SD 43.5 fl (35.1-43.9); Red Blood Count 3.76 M/mm3 (4.2-5.4); White Blood Count 5.2 K/mm3 (4.4-11.0)
[2024-08-17 14:41] LABS: Anion Gap 5 (5-15); BUN 10 mg/dL (7-18); BUN/Creat Ratio 8.7 RATIO (10-20); Calcium,Total 9.2 mg/dL (8.5-10.1); Chloride 108 mmol/L (98-107); Creatinine, Serum 1.15 mg/dL (0.55-1.02); EST Glomerular Filtration Rate 56 mL/min (>60); Est Glom Filt Rate - Afr Amer 68 mL/min (>60); Glucose 93 mg/dL (74-106); Potassium 3.9 mmol/L (3.5-5.1); Sodium Level 139 mmol/L (136-145)
--- NOTE | 2024-08-17 14:42 | ED.RN ---
Patient prompted for urine specimen. Patient states that she had tried but was unable to provide specimen. States that she would like to wait before trying again.
[2024-08-17 14:43] LABS: Internal QC Validated? YES +Cl - CLEAR BKGD; Pregnancy, Serum, hCG Quali. NEGATIVE Negative
--- NOTE | 2024-08-17 15:03 | EDS_ITS ---
HPI <GUSTAVO Cordero - Last Filed: 08/17/24 21:46> History of Present Illness Chief Complaint: Mental Health Narrative Narrative: 38-year-old female with history of anxiety, depression, PTSD who presents to the emergency department for worsening depression. Patient has never been to a psych facility, patient recently started seeing a psychiatrist, patient is on buspirone as well as Celexa and was recently placed on Pristiq. Patient only did 1 dose of Pristiq and she did not like the way it made her feel so she stopped. She states that today she feels like she is declining, she states that she cannot cook for herself, she also had images of her taking pills and this scared her and she is here for evaluation. PFSH <GUSTAVO Cordero - Last Filed: 08/17/24 21:46> PFS Medical History Panic disorder PTSD (post-traumatic stress disorder) Major depressive disorder, recurrent, moderate Generalized anxiety disorder Post concussion syndrome Home Medications ?Medication ?Instructions ?Recorded ?Last Taken ?Type amitriptyline 25 mg tablet 25 mg PO DAILY 12/17/22 Unknown History desvenlafaxine succinate 25 mg 25 mg PO QDAY #30 tabs 08/14/24 Unknown Rx tablet,extended release 24 hr (Pristiq) buspirone 5 mg tablet 5 mg PO BID 08/17/24 Unknown History Allergy/AdvReac Type Severity Reaction Status Date / Time peanut Allergy Hives Verified 08/17/24 13:46 Family History Father Anxiety CAD (coronary artery disease) Hypertension Depression Mother Anxiety Depression Hypertension Kidney disease Sister Anxiety Depression Seizures Surgical History History of appendectomy Social History Smoking Status: Never smoker alcohol intake: never substance use type: does not use what type of physical activity do you participate in: none ROS <GUSTAVO Cordero - Last Filed: 08/17/24 21:46> ROS ED ROS Narrative Constitutional: Negative for fever, chills, weight loss, weakness Eyes: Negative for vision loss, vision change, double vision ENT: Negative for any sore throat, ear pain, congestion Cardiovascular: Negative for any chest pain, tightness, palpitations Respiratory: Negative for any cough, sputum production, hemoptysis, dyspnea, dyspnea on exertion, orthopnea Gastrointestinal: Negative for any abdominal pain, nausea, vomiting, diarrhea, constipation, blood in stool, blood in vomit : Negative for any urinary frequency, dysuria, retention, blood in urine Muscle skeletal: Negative for any neck pain, back pain Neurological: Negative for any headache, syncope, dizziness Skin: Negative for any rashes, itching, abrasions, lacerations Psychiatric: Negative for any homicidal ideation. Positive for stress, anxiety, a vision of her harming herself with pills Hematologic: Negative for any excessive bruising, easy bleeding EXAM <GUSTAVO Cordero - Last Filed: 08/17/24 21:46> Physical Exam Narrative Exam Narrative: Vital signs reviewed. Patient is alert and orient x 4, patient is acting appropriate. Patient seems to have a well grasp on the situation. She states she did not like these particular thoughts that she had, however she states I do not want to kill myself several times. HEET: Head normocephalic atraumatic, TMs clear bilaterally. Posterior pharynx is clear, moist mucous membranes. Nares clear bilaterally. Neck: Supple with no lymphadenopathy or tenderness. No signs of meningismus. Cardiac: Regular rate and rhythm no murmurs gallops or rubs, equal peripheral pulses bilaterally. Respiratory: Lungs clear to auscultation bilaterally. No chest tenderness. Abdomen: Soft, nontender, nondistended. No abdominal bruit or pulsatile masses. No hepatosplenomegaly Extremities: No peripheral edema, no signs of gross trauma or deformity. Active full range of motion of all extremities. Neuro: Cranial nerves II through XII intact, no focal neurological deficits. Skin: Clean dry and intact with no rash, purpura, petechiae, vesicles or pustules. Backs/flank: No CVA tenderness, no midline spinal tenderness, no deformity. Psych: Normal mood and affect. No SI, HI or acute psychosis. Const Vital Signs: 08/17/24 13:46 08/17/24 19:06 08/17/24 21:10 Temperature 97.9 F 98 F Temperature Source Temporal Pulse Rate 83 62 62 Respiratory Rate 16 18 18 Blood Pressure 119/84 H 110/87 H 110/87 H Blood Pressure Mean 95 94 94 Pulse Ox 98 98 97 Oxygen Delivery Method Room Air Room Air Positive well nourished and well developed General Appearance ED: well developed <Dr. George Chavez DO - Last Filed: 08/17/24 23:00> Physical Exam Const Vital Signs: 08/17/24 13:46 08/17/24 19:06 08/17/24 21:10 Temperature 97.9 F 98 F Temperature Source Temporal Pulse Rate 83 62 62 Respiratory Rate 16 18 18 Blood Pressure 119/84 H 110/87 H 110/87 H Blood Pressure Mean 95 94 94 Pulse Ox 98 98 97 Oxygen Delivery Method Room Air Room Air MDM <GUSTAVO Cordero - Last Filed: 08/17/24 21:46> MDM Lab Data Labs: Laboratory Results - last 24 hr 08/17/24 08/17/24 14:10 16:20 WBC 5.2 RBC 3.76 L Hgb 11.7 L Hct 37.1 MCV 98.7 MCH 31.1 MCHC 31.5 L RDW Std Deviation 43.5 RDW Coeff of Doug 11.9 Plt Count 202 MPV 11.0 Immature Gran % (Auto) 0.200 Neut % (Auto) 49.9 Lymph % (Auto) 38.4 Wirt % (Auto) 9.6 Eos % (Auto) 1.3 Baso % (Auto) 0.6 Absolute Neuts (auto) 2.6 Absolute Lymphs (auto) 2.00 Nucleated RBC % 0 Sodium 139 Potassium 3.9 Chloride 108 H Carbon Dioxide 26.0 Anion Gap 5 BUN 10 Creatinine 1.15 H Estim Creat Clear Calc 73.70 Est GFR (MDRD) Af Amer 68 Est GFR (MDRD) Non-Af 56 L BUN/Creatinine Ratio 8.7 L Glucose 93 Calcium 9.2 Serum , Qual NEGATIVE Urine Opiates Screen NEGATIVE Urine Methadone Screen NEGATIVE Ur Barbiturates Screen NEGATIVE Ur Phencyclidine Scrn NEGATIVE Ur Amphetamines Screen NEGATIVE MDMA (Ecstasy) Screen NEGATIVE U Benzodiazepines Scrn NEGATIVE Urine Cocaine Screen NEGATIVE U Cannabinoids Screen NEGATIVE Ur Drug Screen Comment Ethyl Alcohol 4.0 EKG Normal sinus rhythm: Attestation: I personally reviewed and interpreted this EKG as follows: Comments: EKG shows normal sinus rhythm, rate of 76 bpm, IL 164 ms, QRS duration 80 ms, no acute ST elevation, no acute infarct noted. Treatment and Re-Evaluation :: Differential diagnosis includes however is not limited to: Stress reaction, anxiety, suicidal ideation, depression, major depression Patient appears to be in no obvious distress, vital signs are stable, nontoxic- appearing. Present to the emergency department for worsening depression, increased stress, a flash of her taking pills, she states she is not suicidal however this type of thinking did scare her. Patient did receive a CBC that was negative, chemistries showed a creatinine of 1.15, patient's GFR 56, unsure if this is chronic. Patient's serum is negative, alcohol was negative. Patient will need to see the child protective services social worker who is in the department. After this, we will discuss to come up with the plan for the patient. At this time, on my physical exam and speak with the patient, I do not believe the patient poses a acute threat to her life at this time. Patient's COVID-19 was negative. Patient CBC was unremarkable, chemistries were unremarkable, patient's toxicology was negative, patient at this time was pink slipped for ease of transfer. Patient was told about this and understood. EKG was unremarkable. Patient did see the child protective services social worker, patient is currently waiting for placement. The time is 8 PM, the patient is resting in the room. Patient is acting appropriate. Currently waiting for admission to a psychiatric facility <Dr. George Chavez, DO - Last Filed: 08/17/24 23:00> [facility] Lab Data Labs: Laboratory Results - last 24 hr 08/17/24 08/17/24 14:10 16:20 WBC 5.2 RBC 3.76 L Hgb 11.7 L Hct 37.1 MCV 98.7 MCH 31.1 MCHC 31.5 L RDW Std Deviation 43.5 RDW Coeff of Doug 11.9 Plt Count 202 MPV 11.0 Immature Gran % (Auto) 0.200 Neut % (Auto) 49.9 Lymph % (Auto) 38.4 Wirt % (Auto) 9.6 Eos % (Auto) 1.3 Baso % (Auto) 0.6 Absolute Neuts (auto) 2.6 Absolute Lymphs (auto) 2.00 Nucleated RBC % 0 Sodium 139 Potassium 3.9 Chloride 108 H Carbon Dioxide 26.0 Anion Gap 5 BUN 10 Creatinine 1.15 H Estim Creat Clear Calc 73.70 Est GFR (MDRD) Af Amer 68 Est GFR (MDRD) Non-Af 56 L BUN/Creatinine Ratio 8.7 L Glucose 93 Calcium 9.2 Serum , Qual NEGATIVE Urine Opiates Screen NEGATIVE Urine Methadone Screen NEGATIVE Ur Barbiturates Screen NEGATIVE Ur Phencyclidine Scrn NEGATIVE Ur Amphetamines Screen NEGATIVE MDMA (Ecstasy) Screen NEGATIVE U Benzodiazepines Scrn NEGATIVE Urine Cocaine Screen NEGATIVE U Cannabinoids Screen NEGATIVE Ur Drug Screen Comment Ethyl Alcohol 4.0 Treatment and Re-Evaluation :: Differential diagnosis includes however is not limited to: Stress reaction, anxiety, suicidal ideation, depression, major depression Patient appears to be in no obvious distress, vital signs are stable, nontoxic- appearing. Present to the emergency department for worsening depression, increased stress, a flash of her taking pills, she states she is not suicidal however this type of thinking did scare her. Patient did receive a CBC that was negative, chemistries showed a creatinine of 1.15, patient's GFR 56, unsure if this is chronic. Patient's serum is negative, alcohol was negative. Patient will need to see the child protective services social worker who is in the department. After this, we will discuss to come up with the plan for the patient. At this time, on my physical exam and speak with the patient, I do not believe the patient poses a acute threat to her life at this time. Patient's COVID-19 was negative. Patient CBC was unremarkable, chemistries were unremarkable, patient's toxicology was negative, patient at this time was pink slipped for ease of transfer. Patient was told about this and understood. EKG was unremarkable. Patient did see the child protective services social worker, patient is currently waiting for placement. The time is 8 PM, the patient is resting in the room. Patient is acting appropriate. Currently waiting for admission to a psychiatric facility ED attending note: I evaluated the patient in conjunction with the SINGH. I agree with his/her statements and above findings. I have personally performed a face to face assessment of the patient and have reviewed the SINGH Note. I performed a substantive portion of the visit including all aspects of the following. I personally saw the patient performed chart review, physical exam, reviewed labs, imaging (if obtained), and formulated a treatment and management plan. This note was generated with [employer] dictation software. It may contain incorrect words, spelling, and punctuation that were not noted in review of the chart prior to signing. Discharge Plan Triage Chief Complaint: Mental Health ED Midlevel Provider: Smith Ryan ED Provider: George Chavez Dx/Rx/DC Orders Clinical Impression: Suicidal behavior, Anxiety, Depression Prescriptions: No Action desvenlafaxine succinate [Pristiq] 25 mg tablet extended release 24 hr 25 mg PO QDAY Qty: 30 2RF amitriptyline 25 mg tablet 25 mg PO DAILY buspirone 5 mg tablet 5 mg PO BID Primary Care Provider: Mahendra Henderson Referrals: Mahendra Henderson MD [Primary Care Provider] - Print Language: Palestinian Disposition Disposition: Acute Care Hospital
--- NOTE | 2024-08-17 15:04 | ED.RN ---
Helicopter Engineer bedside
--- NOTE | 2024-08-17 15:04 | ED.RN ---
Smith DALTON states a sitter is not necessary
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
[2024-08-17 16:49] LABS: Amphetamine Urine VISTA NEGATIVE (<1000 ng/mL); Barbiturate Urine VISTA NEGATIVE (< 200 ng/mL); Benzodiazepine Urine VISTA NEGATIVE (< 200 ng/mL); Cocaine Urine VISTA NEGATIVE (< 300 ng/mL); Ecstacy Urine VISTA NEGATIVE (< 500 ng/mL); Methadone Urine VISTA NEGATIVE (< 300 ng/mL); PCP Urine VISTA NEGATIVE (< 25 ng/mL); THC Urine VISTA NEGATIVE (< 50 ng/mL); Vista UDS pH Range 4
--- NOTE | 2024-08-17 16:56 | ED.RN ---
Patient given finger food meal tray.
--- NOTE | 2024-08-17 17:47 | CM.ED ---
Social Work: farmworker vegetable made phone contact with Nova at [facility] who confirmed they currently have open beds. Web Operations Lead faxed over referral packet for review. Zee Richardson, INOCULATOR, FIREARMS EXPERT
--- NOTE | 2024-08-17 18:57 | EKG12_ITS ---
Test Reason : [facility] Blood Pressure : / mmHG Vent. Rate : 076 BPM Atrial Rate : 076 BPM P-R Int : 164 ms QRS Dur : 080 ms QT Int : 354 ms P-R-T Axes : 060 025 027 degrees QTc Int : 398 ms Normal sinus rhythm Normal ECG Confirmed by NANCY MACK MD ([id number]), commercial production editor SAMSON ARIAS ([id number]) on 08/20/2024 1:55:46 PM Referred By: Confirmed By:NANCY MACK MD
[2024-08-17 19:06] VITALS: BP 110/87; PULSE 62; RESP 18; O2SAT 98
--- NOTE | 2024-08-17 19:43 | CM.ED ---
Social Work: Incinerator Plant Laborer received acceptance from [facility] [place], Adult Unit, Room 208-A. Receiving Facility in need of an EKG. Accepting doctor: Dr. Camilo. Nurse to Nurse: Zee Richardson, DENTAL HYGIENIST, TECHNOLOGIST DEVELOPMENT
--- NOTE | 2024-08-17 19:53 | CM.ED ---
Social Work: end worker met with patient and provided her an update on receiving facility and patient was very excited and stated she now feels like she has hope. end worker provided patient with written information on [facility], [facility], [facility] for extra support and assistance with possible new housing and [phone]. Zee Richardson, ANALYST GEOCHEMICAL PROSPECTING, INSTRUCTOR TRAFFIC SAFETY
[2024-08-17 21:10] VITALS: BP 110/87; PULSE 62; RESP 18; TEMP 36.6; O2SAT 97
[2024-08-17 23:00] VITALS: PULSE 70; RESP 16; O2SAT 100
== END 2024-08-18 00:30 | disposition short-term general hospital (02) ==
PROVIDERS: Emergency Provider Emergency Medicine; PCP Internal Medicine; Visit Provider Emergency Medicine
DX: R45.851 Suicidal ideations (principal); F41.9 Anxiety disorder, unspecified; F32.A Depression, unspecified; Z79.899 Other long term (current) drug therapy; Z90.49 Acquired absence of other specified parts of digestive tract
CPT/HCPCS: 80048; 80307; 82077; 84703; 85025; 93005; 99283

== ENCOUNTER 2024-09-05 13:24 | Emergency (ER) | payer MEDICAID, SELFPAY ==
[2024-09-05 13:25] VITALS: BP 124/101; PULSE 112; RESP 16; TEMP 36.8; O2SAT 98; BMI 26.0
[2024-09-05 15:25] VITALS: PULSE 82; RESP 18; O2SAT 98
--- NOTE | 2024-09-05 16:28 | ED.RN ---
PT STATES I DONT WANT TO BE HERE ANYMORE BUT I DO NOT WANT TO HARM MYSELF. I AM A SABIANISM. THIS RN HAD A LONG CONVERSATION ABOUT PLACEMENT AND MENTAL HEALTH. THE PATIENT AGREES THAT SHE NEEDS TO BE PLACED DUE TO HER MEDS NOT WORKING AND HAVING THESE THOUGHTS.
--- NOTE | 2024-09-05 16:49 | EX.ED.DYSGE1 ---
HPI History of Present Illness Chief Complaint: General Illness Informant: patient Narrative Narrative: 38-year-old female with a history of depression and anxiety was admitted to psychiatric facility voluntarily couple weeks ago, she was discharged on Lexapro which is the only new medication for her. She was already on buspirone. Ever since starting the Lexapro she has felt fatigued, twitchy at night she states, and some occasional transient blurry vision without vision loss, and feeling very anxious. She states she called her psychiatrist, but then she came here because she was feeling anxious and the pharmacy does not have her Vistaril ready yet, which was prescribed to her by urgent care, where she visited 1 or 2 days ago. the last time she took the Lexapro was yesterday morning, she was planning on potentially discontinuing it or tapering it down, and then she states on the way here her psychiatrist called her back and agreed with her discontinuing it and not starting any other new medications other than the Vistaril just as needed for anxiety until she follows up with him. [facility] Medical History Panic disorder PTSD (post-traumatic stress disorder) Major depressive disorder, recurrent, moderate Generalized anxiety disorder Post concussion syndrome Home Medications ?Medication ?Instructions ?Recorded ?Last Taken ?Type buspirone 5 mg tablet 5 mg PO BID 08/17/24 Unknown History Allergy/AdvReac Type Severity Reaction Status Date / Time peanut Allergy Hives Verified 09/05/24 13:27 Family History Father Anxiety CAD (coronary artery disease) Hypertension Depression Mother Anxiety Depression Hypertension Kidney disease Sister Anxiety Depression Seizures Surgical History History of appendectomy Social History Smoking Status: Never smoker alcohol intake: never substance use type: does not use what type of physical activity do you participate in: none ROS ROS ED Constitutional Constitutional ED: Denies chills or fever(s) Eyes Eyes: Reports blurry vision bilateral (Occasionally not now); Denies diplopia ENT ENT ED: Denies rhinorrhea or sore throat Cardiovascular Cardiovascular: Denies chest pain or palpitations Respiratory/Chest Respiratory/Chest: Denies cough or dyspnea Gastrointestinal Gastrointestinal: Denies abdominal pain, diarrhea, nausea or vomiting Genitourinary Genitourinary ED: Denies dysuria or hematuria Musculoskeletal Musculoskeletal: Denies back pain or neck pain Integumentary Denies abscess or rash Neurologic Neurologic: Reports other Details: Twitching see HPI ; Denies headache(s), paresthesias or weakness Psychiatric Psychiatric: Reports anxiety and other Details: Had some suicidal thoughts soon after being discharged from the psychiatric hospital but denies now. EXAM Physical Exam Const Vital Signs: 09/05/24 13:25 09/05/24 15:25 09/05/24 17:00 Temperature 98.2 F Temperature Source Oral Pulse Rate 112 H 82 75 Respiratory Rate 16 18 17 Blood Pressure 124/101 H Blood Pressure Mean 108 Pulse Ox 98 98 98 Oxygen Delivery Method Room Air Room Air Room Air 09/05/24 18:55 09/05/24 19:48 Temperature Temperature Source Pulse Rate 85 Respiratory Rate 18 18 Blood Pressure 121/77 H Blood Pressure Mean 91 Pulse Ox 98 Oxygen Delivery Method Room Air Room Air Positive well nourished and well developed General Appearance ED: well developed and NAD HEENT Reports moist mucous membranes normocephalic and atraumatic Eyes PERRL and EOMs intact bilaterally Neck full ROM and supple Resp normal respiratory effort and clear to auscultation bilaterally Cardio regular rate, regular rhythm and no murmurs GI non-distended Back/Spine General Back: other FROM Extremity normal to inspection General Extremety ED: Negative for edema General Extremity: Negative for edema Neuro oriented x3, CN's II-XII intact bilaterally and no sensory deficits noted Sensorium / Orientation: awake and alert Motor Exam: strength 5/5 throughout Psych Psych Narrative: A little anxious but otherwise logical goal-directed thoughts. Not overly panicky. Skin no rashes or lesions noted and no wounds MDM MDM MDM Narrative Medical decision making narrative: I offered her a dose of Vistaril here which she was amenable to doing, and then having her follow-up with her psychiatrist as scheduled, and get the prescribed Vistaril from the pharmacy. She asked for another written prescription just in case the other 1 is not going to be filled today so that she can go to a different pharmacy which I said was fine. Prior to discharging the patient and giving her the dose of Vistaril, she alerted nursing that she changed her mind and was feeling worse and wanted to have crisis evaluate her for possible placement. I went to speak with her. She states that she does not feel safe at home because of her anxiety and the fact that she will have to be on nothing after stopping the Lexapro and her psychiatrist will be available to September she is asking for crisis to evaluate her for possible placement because she does not think she can function. At this point we obtained labs and drug screen and alcohol, it is all clear and negative and normal and she is medically cleared for psychiatric evaluation. Crisis evaluated and we spoke. Apparently the patient is feeling so anxious she is having thoughts of suicide and came up with some specific ideas. I would be okay with intensive outpatient therapy, patient seems insightful, crisis was okay with that as well but upon offering to her the patient really wants to stay inpatient. She is voluntary, but the psychiatric facility to which she is accepted is demanding a pink slip which I wrote. Lab Data Attestation: I reviewed the patient's lab results. Labs: Laboratory Results - last 24 hr 09/05/24 09/05/24 16:40 18:03 WBC 6.2 RBC 4.07 L Hgb 12.9 Hct 39.7 MCV 97.5 MCH 31.7 MCHC 32.5 RDW Std Deviation 43.7 RDW Coeff of Doug 12.1 Plt Count 244 MPV 11.4 Immature Gran % (Auto) 0.300 Neut % (Auto) 69.2 Lymph % (Auto) 24.4 [place] % (Auto) 5.5 Eos % (Auto) 0.3 Baso % (Auto) 0.3 Absolute Neuts (auto) 4.3 Absolute Lymphs (auto) 1.50 Nucleated RBC % 0 Sodium 140 Potassium 4.1 Chloride 107 Carbon Dioxide 26.0 Anion Gap 6 BUN 9 Creatinine 1.06 H Estim Creat Clear Calc 79.68 Est GFR (MDRD) Af Amer 75 Est GFR (MDRD) Non-Af 62 BUN/Creatinine Ratio 8.5 L Glucose 91 Calcium 9.8 Serum , Qual NEGATIVE Urine Opiates Screen NEGATIVE Urine Methadone Screen NEGATIVE Ur Barbiturates Screen NEGATIVE Ur Phencyclidine Scrn NEGATIVE Ur Amphetamines Screen NEGATIVE MDMA (Ecstasy) Screen NEGATIVE U Benzodiazepines Scrn NEGATIVE Urine Cocaine Screen NEGATIVE U Cannabinoids Screen NEGATIVE Ur Drug Screen Comment Ethyl Alcohol < 3.0 Management Discussion w/another healthcare provider: tube worker/Case management Discharge Plan Triage Chief Complaint: General Illness ED Provider: Julien Ngo Dx/Rx/DC Orders Clinical Impression: Anxiety, Suicidal thoughts Prescriptions: No Action buspirone 5 mg tablet 5 mg PO BID Primary Care Provider: Mahendra Henderson Referrals: Mahendra Henderson MD [Primary Care Provider] - Print Language: [place] Disposition Disposition: Psychiatric Hospital or Unit
[2024-09-05 17:00] VITALS: PULSE 75; RESP 17; O2SAT 98
[2024-09-05 17:21] LABS: Absolute Neutrophil Count 4.3 X10^3/uL (2.0-7.7); Basophil# 0.02 X10^3/uL; Basophil% 0.3 % (0-1); Eosinophil# 0.02 X10^3/uL; Eosinophils% 0.3 % (0-5); Hematocrit 39.7 % (37-47); Hemoglobin 12.9 g/dL (12.0-15.0); Lymphocyte % 24.4 % (19-41); Mean Corp Hgb Conc 32.5 g/dL (32-36); Mean Corpuscular Hgb 31.7 pg (27.0-32.0); Mean Corpuscular Volume 97.5 fL (81-99); Mean Platelet Vol. 11.4 fl (6.2-12.0); Monocyte# 0.34 X10^3/uL; Monocyte% 5.5 % (0-10); NRBC Flagged by Analyzer 0 % (0-5); Neutrophil # 4.25 X10^3/uL (2.7-7.7); Neutrophil % 69.2 % (47-70); Platelet Count 244 K/mm3 (150-450); RBC Distribution Width CV 12.1 % (11.6-14.6); RBC Distribution Width SD 43.7 fl (35.1-43.9); Red Blood Count 4.07 M/mm3 (4.2-5.4); White Blood Count 6.2 K/mm3 (4.4-11.0)
[2024-09-05 17:35] LABS: Alcohol, Blood (Medical)-Serum < 3.0 mg/dL
[2024-09-05 17:36] LABS: Anion Gap 6 (5-15); BUN 9 mg/dL (7-18); BUN/Creat Ratio 8.5 RATIO (10-20); Calcium,Total 9.8 mg/dL (8.5-10.1); Chloride 107 mmol/L (98-107); Creatinine, Serum 1.06 mg/dL (0.55-1.02); EST Glomerular Filtration Rate 62 mL/min (>60); Est Glom Filt Rate - Afr Amer 75 mL/min (>60); Estimated Creatinine Clearance 79.68 ml/min; Glucose 91 mg/dL (74-106); Potassium 4.1 mmol/L (3.5-5.1); Sodium Level 140 mmol/L (136-145)
[2024-09-05 17:42] LABS: Internal QC Validated? YES +Cl - CLEAR BKGD; Pregnancy, Serum, hCG Quali. NEGATIVE Negative
[2024-09-05] MEDS: hydrOXYzine PAM 25 MG Capsule PO (18:03)
[2024-09-05 18:24] LABS: Amphetamine Urine VISTA NEGATIVE (<1000 ng/mL); Barbiturate Urine VISTA NEGATIVE (< 200 ng/mL); Benzodiazepine Urine VISTA NEGATIVE (< 200 ng/mL); Cocaine Urine VISTA NEGATIVE (< 300 ng/mL); Ecstacy Urine VISTA NEGATIVE (< 500 ng/mL); Methadone Urine VISTA NEGATIVE (< 300 ng/mL); PCP Urine VISTA NEGATIVE (< 25 ng/mL); THC Urine VISTA NEGATIVE (< 50 ng/mL); Vista UDS pH Range 4
--- NOTE | 2024-09-05 18:54 | ED.RN ---
CHART FAXED CRISIS CALLED
[2024-09-05 18:55] VITALS: BP 121/77; PULSE 85; RESP 18; O2SAT 98
[2024-09-05 19:48] VITALS: RESP 18
[2024-09-05] MEDS: busPIRone 5 MG Tablet PO (21:06)
--- NOTE | 2024-09-05 23:24 | ED.RN ---
PT ACCEPTED AT [facility] N2N [id number] UNIT
[2024-09-06] MEDS: hydrOXYzine PAM 25 MG Capsule PO (01:06)
[2024-09-06 02:00] VITALS: BP 121/77; PULSE 71; RESP 18; TEMP 37.1; O2SAT 99
[2024-09-06 07:11] VITALS: BP 105/78; PULSE 74; RESP 18; TEMP 36.6; O2SAT 99
== END 2024-09-06 07:11 ==
PROVIDERS: Emergency Provider Emergency Medicine; PCP Internal Medicine; Referring Provider Emergency Medicine; Visit Provider Emergency Medicine
DX: F41.9 Anxiety disorder, unspecified (principal); R45.851 Suicidal ideations; Z79.899 Other long term (current) drug therapy; Z90.49 Acquired absence of other specified parts of digestive tract
CPT/HCPCS: 80048; 80307; 82077; 84703; 85025; 99285

== ENCOUNTER 2024-09-27 14:07 | Emergency (ER) | payer MEDICAID, SELFPAY ==
[2024-09-27 14:09] VITALS: BP 151/101; PULSE 132; RESP 16; TEMP 36.6; O2SAT 100; BMI 26.3
[2024-09-27] MEDS: Acetaminophen 500 MG Tablet 1000 MG PO (14:41)
[2024-09-27 14:57] LABS: Absolute Lymphocyte Count 1.85 X10^3/uL (0.83-4.51); Absolute Neutrophil Count 2.5 X10^3/uL (2.0-7.7); Basophil# 0.02 X10^3/uL; Basophil% 0.4 % (0-1); Eosinophil# 0.05 X10^3/uL; Hematocrit 34.1 % (37-47); Hemoglobin 11.4 g/dL (12.0-15.0); Lymphocyte # 1.85 X10^3/ul (0.83-4.51); Lymphocyte % 37.4 % (19-41); Mean Corp Hgb Conc 33.4 g/dL (32-36); Mean Corpuscular Hgb 31.5 pg (27.0-32.0); Mean Corpuscular Volume 94.2 fL (81-99); Mean Platelet Vol. 10.4 fl (6.2-12.0); Monocyte# 0.47 X10^3/uL; Monocyte% 9.5 % (0-10); NRBC Flagged by Analyzer 0 % (0-5); Neutrophil # 2.54 X10^3/uL (2.7-7.7); Neutrophil % 51.5 % (47-70); Platelet Count 302 K/mm3 (150-450); RBC Distribution Width SD 41.8 fl (35.1-43.9); Red Blood Count 3.62 M/mm3 (4.2-5.4); White Blood Count 4.9 K/mm3 (4.4-11.0)
[2024-09-27 15:18] LABS: Anion Gap 6 (5-15); BUN 7 mg/dL (7-18); Calcium,Total 9.2 mg/dL (8.5-10.1); Chloride 110 mmol/L (98-107); Creatinine, Serum 0.99 mg/dL (0.55-1.02); EST Glomerular Filtration Rate 67 mL/min (>60); Est Glom Filt Rate - Afr Amer 81 mL/min (>60); Estimated Creatinine Clearance 85.64 ml/min; Glucose 96 mg/dL (74-106); Potassium 3.6 mmol/L (3.5-5.1); Sodium Level 140 mmol/L (136-145); Troponin-I HS < 3 pg/mL (3.0-54.0)
[2024-09-27 15:29] VITALS: PULSE 90
[2024-09-27] MEDS: DiphenhydrAMINE 50 MG/ML Syringe IV (15:51)
[2024-09-27] MEDS: MethylPREDNISolone 125 MG/2 ML Vial IV (15:51)
[2024-09-27 15:55] VITALS: BP 135/101; PULSE 104; RESP 18; O2SAT 100
[2024-09-27 18:07] VITALS: PULSE 100; O2SAT 100
== END 2024-09-27 21:21 | disposition home or self-care (01) ==
PROVIDERS: Emergency Provider Emergency Medicine; PCP Internal Medicine; Visit Provider Emergency Medicine
DX: R07.9 Chest pain, unspecified (principal); F41.9 Anxiety disorder, unspecified; R00.2 Palpitations; Z79.899 Other long term (current) drug therapy; Z90.49 Acquired absence of other specified parts of digestive tract
CPT/HCPCS: 71275; 80048; 84484; 85025; 85379; 93005; 96374; 96375; 99284; Q9967; A4216

== ENCOUNTER 2025-01-11 16:33 | Emergency (ER) | payer MEDICAID, SELFPAY ==
[2025-01-11 16:33] VITALS: BP 127/63; PULSE 128; RESP 16; TEMP 36.6; O2SAT 100
--- NOTE | 2025-01-11 16:36 | ED.VIS.CHEST ---
HPI History of Present Illness Chief Complaint: [facility] Medical History Panic disorder PTSD (post-traumatic stress disorder) Major depressive disorder, recurrent, moderate Generalized anxiety disorder Post concussion syndrome Home Medications ?Medication ?Instructions ?Recorded ?Last Taken ?Type buspirone 5 mg tablet 5 mg PO BID 08/17/24 Unknown History hydroxyzine HCl 10 mg tablet 10 mg PO Q8H PRN anxiety 09/27/24 Unknown History Allergy/AdvReac Type Severity Reaction Status Date / Time peanut Allergy Hives Verified 01/11/25 16:36 Family History Father Anxiety CAD (coronary artery disease) Hypertension Depression Mother Anxiety Depression Hypertension Kidney disease Sister Anxiety Depression Seizures Surgical History History of appendectomy Social History Smoking Status: Never smoker alcohol intake: never substance use type: does not use what type of physical activity do you participate in: none EXAM Physical Exam Const Vital Signs: 01/11/25 16:33 01/11/25 17:03 01/11/25 17:33 Temperature 98 F Temperature Source Temporal Pulse Rate 128 H 97 Respiratory Rate 16 18 Blood Pressure 127/63 H 123/76 H Blood Pressure Mean 84 91 Pulse Ox 100 Oxygen Delivery Method Room Air Room Air MDM MDM MDM Narrative Medical decision making narrative: HISTORY OF PRESENT ILLNESS: 39-year-old female presents concern for palpitations. States she is recovering from vitamin D deficiency. She further states she experienced shortness of breath. This is improved since its initiation approximately 2 hours prior to arrival. Patient is using on the couch started feeling her heart race and short of breath. She denies loss of consciousness. Denies any recent illnesses, cough, fever, chills. Denies leg swelling, or paroxysmal nocturnal dyspnea, orthopnea. The patient denies recent surgery in the last 4 weeks or immobilization in the last 3 days, denies previous diagnosis of DVT or PE, hemoptysis, unilateral leg swelling or malignancy with treatment the last 6 months or palliative. No estrogen use noted. REVIEW OF SYSTEMS: Pertinent positives: SOB, palpitations Pertinent negatives: CP PHYSICAL EXAM: Nursing triage notes reviewed, Vital signs reviewed Constitutional: please see [facility] HENT: MMM Eyes: Pupils equal round and reactive to light, Extraocular muscles intact Neck: No stridor, no JVD, full neck ROM Lungs: Clear to auscultation, No wheezing or rales. No increased work of breathing, no conversational dyspnea, no accessory muscle use, no nasal flaring. No respiratory distress noted Heart: Regular rate and rhythm, No murmurs, No rubs and No gallops, 2+ distal pulses (radial, femoral, posterior tibial) in all extremities Abdomen: Soft, there is no tenderness, rigidity, rebound or guarding, no obvious peritoneal signs, no palpable pulsatile abdominal masses, no auscultated abdominal bruit : No CVAT Extremities: No edema Neuro: No new focal neurological deficits, cranial nerves II through XII intact, 5/5 strength in all present extremities. Intact sensation to light touch in all present extremities, 2+ reflexes bilateral patella tendons. Skin: No rash or lesions noted MEDICAL DECISION MAKING: Chief Complaint: Palpitations, shortness of breath External records reviewed: Reviewed prior cardiovascular testing Factors affecting care: anxiety, PTSD, depression, panic disorder Social determinants of health: denies illicit drug use History obtained from others: none Consults: none [facility] Narrative: Patient was initially tachycardic rate 128 otherwise afebrile and nontoxic-appearing. Exam without focal cardiopulmonary abnormalities. No pulse deficits. No stigmata of VTE or CHF. I considered the following differential diagnosis: Arrhythmia, anemia, electrolyte disturbance, PE, Dehydration While I considered pulmonary embolism as a potential etiology of the patient's symptoms she had a low risk Wells score, no chest pain is not hypoxic and had no stigmata of VTE and as such have a low suspicion for PE. I considered obtaining a D-dimer or advanced imaging without these tests were not indicated at this time. I obtained a broad lab and imaging workup to further elucidate the etiology of the patient's complaints. Initially resuscitated patient 1 L normal saline ALL IMAGES (IF OBTAINED) HAVE BEEN PERSONALLY REVIEWED AND INTERPRETED BY MYSELF. EKG with sinus tachycardia rate of 112, normal axis, normal intervals, QTc 442, no STEMI, no sign of WPW, ARVD or Brugada syndrome I have personally reviewed the patient's chest x-ray. Chest x-ray is unremarkable for pulmonary edema, pneumothorax, pneumonia or focal cardiopulmonary abnormality. High-sensitivity troponin is negative, no evidence of myocardial ischemia CBC without leukocytosis, severe anemia, no thrombocytopenia. BMP without evidence of significant electrolyte abnormalities, no anion gap, no acute kidney injury. On reevaluation heart rate improved to 97. The synthesis of the patient's history, physical exam, labs images suggest no acute life-limiting etiology. Unclear etiology however the patient is appropriate for outpatient follow-up for Holter monitor or additional testing her PCP sees fit. Discussed with patient. Patient agreed The patient and/or family, caregivers express understanding. The patient and/or family, caregivers agrees with the plan. Shared decision making: I will have a discussion with the patient and or visitors regarding risk/benefits of further testing or admission. They will be made aware of of the risk/benefits inherent in this decision they will be given the opportunity to voice understanding. Total critical care time today provided was at least 0 minutes. This excludes separately billable procedures. Critical care time (if documented) is secondary to the patient having high probability of clinically significant/life threatening deterioration in the patient's condition which required my urgent intervention. Impression: 1. Palpitations 2. Dyspnea Dispo: Discharge This note was generated with [employer] dictation software. It may contain incorrect words, spelling, and punctuation that were not noted in review of the chart prior to signing. Lab Data Labs: Laboratory Results - last 24 hr 01/11/25 17:10 WBC 5.3 RBC 3.91 L Hgb 12.0 Hct 37.2 MCV 95.1 MCH 30.7 MCHC 32.3 RDW Std Deviation 42.8 RDW Coeff of Doug 12.3 Plt Count 239 MPV 10.6 Immature Gran % (Auto) 0.200 Neut % (Auto) 49.9 Lymph % (Auto) 33.1 [place] % (Auto) 12.4 H Eos % (Auto) 4.0 Baso % (Auto) 0.4 Absolute Neuts (auto) 2.6 Absolute Lymphs (auto) 1.74 Nucleated RBC % 0 Sodium 140 Potassium 3.6 Chloride 106 Carbon Dioxide 29.0 Anion Gap 5 BUN 9 Creatinine 1.09 H Estim Creat Clear Calc 80.49 Est GFR (MDRD) Af Amer 72 Est GFR (MDRD) Non-Af 60 BUN/Creatinine Ratio 8.3 L Glucose 112 H Calcium 9.3 Troponin I High Sens < 3 L Radiography Diagnostic Testing: Clinical Impression(s) from Imaging Studies Chest X-Ray 01/11/25 17:18 IMPRESSION: No acute airspace abnormality. Reading Location: [facility] Discharge Plan Triage Chief Complaint: Palpitations ED Provider: George Chavez Dx/Rx/DC Orders Clinical Impression: Heart palpitations Instructions: ED Palpitations Prescriptions: No Action buspirone 5 mg tablet 5 mg PO BID hydroxyzine HCl 10 mg tablet 10 mg PO Q8H PRN (Reason: anxiety) Primary Care Provider: Mahendra Henderson Referrals: Mahendra Henderson MD [Primary Care Provider] - Activity Restrictions/Additional Instructions: Thank you for trusting us with your care today! Your testing was reassuring. Specifically no sign of significant anemia, electrolyte disturbances, kidney dysfunction, heart or lung anatomical abnormalities or damage to your heart. No significant arrhythmias noted. Please take Tylenol (2 pills, 650 mg), ibuprofen (2 pills, 400 mg) every 6 hours as needed for pain and fever control. Please return to the emergency department if your symptoms change or worsen. Please follow with your primary care physician for further outpatient evaluation and management. Specifically inquire about a Holter monitor. Print Language: [place]an Disposition Disposition: Home, Self Care
--- NOTE | 2025-01-11 16:52 | EKG12_ITS ---
Test Reason : TACHYCARDIA Blood Pressure : */* mmHG Vent. Rate : 112 BPM Atrial Rate : 112 BPM P-R Int : 142 ms QRS Dur : 72 ms QT Int : 324 ms P-R-T Axes : 58 24 21 degrees QTcB Int : 442 ms Sinus tachycardia Nonspecific T wave abnormality Abnormal ECG Confirmed by Tramaine Montano ([id number]), state editor SAMSON ARIAS ([id number]) on 01/13/2025 10:19:14 AM Referred By: Confirmed By: Tramaine Montano
[2025-01-11 17:03] VITALS: BMI 28.9
[2025-01-11] MEDS: 0.9% Normal Saline (1000mL) 1,000 ML 999 ML IV (17:16)
--- NOTE | 2025-01-11 17:18 | RAD_ITS ---
PROCEDURE: Chest radiograph REASON FOR EXAM: Chest pain TECHNIQUE: Single frontal image including the chest. COMPARISON: 09/27/2024 FINDINGS: Cardiomediastinal silhouette is within normal limits. Lungs are clear. No sizable pneumothorax. RAD/Chest 1 View (Portable) IMPRESSION: No acute airspace abnormality. Reading Location: [facility]
[2025-01-11 17:21] LABS: Absolute Lymphocyte Count 1.74 X10^3/uL (0.83-4.51); Absolute Neutrophil Count 2.6 X10^3/uL (2.0-7.7); Basophil# 0.02 X10^3/uL; Basophil% 0.4 % (0-1); Eosinophil# 0.21 X10^3/uL; Hematocrit 37.2 % (37-47); Lymphocyte # 1.74 X10^3/ul (0.83-4.51); Lymphocyte % 33.1 % (19-41); Mean Corp Hgb Conc 32.3 g/dL (32-36); Mean Corpuscular Hgb 30.7 pg (27.0-32.0); Mean Corpuscular Volume 95.1 fL (81-99); Mean Platelet Vol. 10.6 fl (6.2-12.0); Monocyte# 0.65 X10^3/uL; Monocyte% 12.4 % (0-10); NRBC Flagged by Analyzer 0 % (0-5); Neutrophil # 2.62 X10^3/uL (2.7-7.7); Neutrophil % 49.9 % (47-70); Platelet Count 239 K/mm3 (150-450); RBC Distribution Width CV 12.3 % (11.6-14.6); RBC Distribution Width SD 42.8 fl (35.1-43.9); Red Blood Count 3.91 M/mm3 (4.2-5.4); White Blood Count 5.3 K/mm3 (4.4-11.0)
[2025-01-11 17:33] VITALS: BP 123/76; PULSE 97; RESP 18
[2025-01-11 17:41] LABS: Anion Gap 5 (5-15); BUN 9 mg/dL (7-18); BUN/Creat Ratio 8.3 RATIO (10-20); Calcium,Total 9.3 mg/dL (8.5-10.1); Chloride 106 mmol/L (98-107); Creatinine, Serum 1.09 mg/dL (0.55-1.02); EST Glomerular Filtration Rate 60 mL/min (>60); Est Glom Filt Rate - Afr Amer 72 mL/min (>60); Estimated Creatinine Clearance 80.49 ml/min; Glucose 112 mg/dL (74-106); Potassium 3.6 mmol/L (3.5-5.1); Sodium Level 140 mmol/L (136-145); Troponin-I HS < 3 pg/mL (3.0-54.0)
[2025-01-11 17:53] VITALS: BP 127/88; PULSE 87; RESP 15; TEMP 37; O2SAT 100
== END 2025-01-11 18:22 | disposition home or self-care (01) ==
LOC: ED 17:54
PROVIDERS: Emergency Provider Emergency Medicine; PCP Internal Medicine; Visit Provider Emergency Medicine
DX: R00.2 Palpitations (principal); Z79.899 Other long term (current) drug therapy; Z90.49 Acquired absence of other specified parts of digestive tract; R06.00 Dyspnea, unspecified
CPT/HCPCS: 71045; 80048; 84484; 85025; 93005; 96360; 99284; A4216

== ENCOUNTER 2025-04-12 05:03 | Emergency (ER) | payer MEDICAID, SELFPAY ==
[2025-04-12 05:04] VITALS: BP 150/80; PULSE 135; RESP 19; TEMP 36.8; O2SAT 100; BMI 30.2
--- NOTE | 2025-04-12 05:18 | EKG12_ITS ---
Test Reason : DYSRHYTHMIA Blood Pressure : */* mmHG Vent. Rate : 100 BPM Atrial Rate : 100 BPM P-R Int : 150 ms QRS Dur : 80 ms QT Int : 334 ms P-R-T Axes : 75 41 40 degrees QTcB Int : 430 ms Normal sinus rhythm Possible Left atrial enlargement POSSIBLE NORMAL Confirmed by Tramaine Montano ([id number]), make up editor SAMSON ARIAS ([id number]) on 04/21/2025 1:01:21 PM Referred By: Confirmed By: Tramaine Montano
--- NOTE | 2025-04-12 05:21 | EX.ED.DYSGE1 ---
HPI History of Present Illness Chief Complaint: Anxiety Narrative Narrative: Chief complaint and HPI: Anxiety and panic attack. 39-year-old female with past medical history of depression, anxiety disorder, PTSD presents for evaluation of anxiety and panic attack. Patient states that she has been under a lot of stress lately especially yesterday. She states this morning she woke up and shortly started to hyperventilate, her anxiety increased, she states that she felt like the room was closing in on her. She has as needed hydroxyzine however she did not take this and instead came to the emergency department. Since arriving at the emergency department, she does feel that her anxiety reaction is improving. She denies any chest pain, shortness of breath, abdominal pain, nausea, vomiting. Review of systems: See HPI Medications: As listed on the chart Allergies: As listed on the chart PFSH: Per chart Vital signs: As listed on the chart. Reviewed. Physical exam: Gen: A&O x3, anxious Head: Normocephalic, atraumatic Eyes: No sclera icterus, conjunctiva clear, PERRL, EOMI ENT: Moist mucous membranes Neck: Trachea midline, No JVD CV: Tachycardic, regular rhythm, no murmurs, no peripheral edema Resp: Lungs CTA BL, no w/r/c Musc: Full ROM, no deformity Skin: Warm, dry Neuro: Alert, oriented, grossly intact, sensation intact Psych: Cooperative, anxious PFSH PFSH Medical History Panic disorder PTSD (post-traumatic stress disorder) Major depressive disorder, recurrent, moderate Generalized anxiety disorder Post concussion syndrome Home Medications ?Medication ?Instructions ?Recorded ?Last Taken ?Type hydroxyzine HCl 10 mg tablet 10 mg PO Q8H PRN anxiety 09/27/24 Unknown History cholecalciferol (vitamin D3) 25 25 mcg PO DAILY 01/18/25 Unknown History mcg (1,000 unit) capsule Allergy/AdvReac Type Severity Reaction Status Date / Time peanut Allergy Hives Verified 04/12/25 05:04 escitalopram (From Lexapro) AdvReac Mild Other Verified 04/12/25 05:04 Family History Father Anxiety CAD (coronary artery disease) Hypertension Depression Mother Anxiety Depression Hypertension Kidney disease Sister Anxiety Depression Seizures Surgical History History of appendectomy Social History Smoking Status: Never smoker alcohol intake: never substance use type: does not use what type of physical activity do you participate in: none EXAM Physical Exam Const Vital Signs: 04/12/25 05:04 Temperature 98.3 F Temperature Source Oral Pulse Rate 135 H Respiratory Rate 19 H Blood Pressure 150/80 H Blood Pressure Mean 103 Pulse Ox 100 Oxygen Delivery Method Room Air MDM MDM MDM Narrative Medical decision making narrative: 39-year-old female with past medical history of depression, anxiety disorder, PTSD presents for evaluation of anxiety and panic attack. Patient endorses being under a lot of stress lately with increased anxiety. Describes a panic attack prior to arrival. On arrival patient is anxious but otherwise in no acute distress. She is tachycardic. I suspect her symptoms are likely secondary to panic attack and anxiety reaction however cannot fully rule out arrhythmia. Patient offered IV and IM Ativan however she declined and asking for p.o. P.o. Ativan ordered. Will get EKG. Patient will be monitored. On reevaluation, patient's symptoms have resolved. Her tachycardia has resolved. Patient's symptoms are likely secondary to anxiety reaction and panic attack. Patient stable to discharge home. Take hydroxyzine as needed. Follow-up with PCP. EKG: Interpreted by me/EM physician: EKG shows normal sinus rhythm. No acute ischemic changes. Heart rate 100. Impression: 1. Anxiety 2. Panic attack Discharge Plan Triage Chief Complaint: Anxiety ED Provider: Dick Matthew Dx/Rx/DC Orders Clinical Impression: Anxiety, Panic disorder Instructions: Anxiety Disorders Tx, ED Panic Attack Prescriptions: No Action cholecalciferol (vitamin D3) 25 mcg (1,000 unit) capsule 25 mcg PO DAILY hydroxyzine HCl 10 mg tablet 10 mg PO Q8H PRN (Reason: anxiety) Primary Care Provider: Mahendra Henderson Referrals: Mahendra Henderson MD [Primary Care Provider] - 3-5 Days Activity Restrictions/Additional Instructions: Follow-up with primary care physician. Return back to the ED if symptoms change or worsen. Print Language: Mauritian Disposition Disposition: Home, Self Care
[2025-04-12] MEDS: LORazepam 1 MG Tablet PO (05:27)
[2025-04-12 06:19] VITALS: BP 113/75; PULSE 75; RESP 18; TEMP 36.8; O2SAT 99
== END 2025-04-12 06:20 | disposition home or self-care (01) ==
PROVIDERS: Emergency Provider Surgery; PCP Internal Medicine; Visit Provider Surgery
DX: F41.9 Anxiety disorder, unspecified (principal); Z79.899 Other long term (current) drug therapy; Z90.49 Acquired absence of other specified parts of digestive tract
CPT/HCPCS: 93005; 99282